=== PATIENT | male | born 1965 | race Caucasian/White ===

== ENCOUNTER 2020-08-20 10:32 | Emergency (ER) | payer OTHER, SELFPAY ==
--- NOTE | 2020-08-20 | CT_ITS ---
EXAMINATION: CT SOFT TISSUE NECK WITH CONTRAST CLINICAL INFORMATION: Deep space infection. Dental abscess. COMPARISON: None available. TECHNIQUE: Multidetector helical imaging was performed in the axial plane following the administration of 60 mL of Omnipaque 350 intravenous contrast. Multiple axial reformats and coronal/sagittal reconstructions were created the technologist workstation for review. This CT examination was performed using dose optimization techniques as appropriate, variously including the following: *Automated exposure control. *Adjustment of mA and/or kV according to patient size (this includes techniques or standardized protocols for targeted exams where dose is matched to indication/reason for exam; i.e. extremities or head). *Use of iterative reconstruction technique. DLP: 435 mGy-cm FINDINGS: There is hyperemia and mild expansion of the left submandibular and sublingual glands. Moderate fat stranding within the left submandibular space. No discrete collection demonstrated. No overt salivary ductal dilatation. No demonstrated obstructive sialolith or focal mass lesion. Normal appearance of the right-sided submandibular and sublingual glands. Normal appearance of the there appears to be a punctate nonobstructive stone in the superficial lobe of the left parotid gland. Otherwise, normal appearance of the parotid glands. Normal appearance of the right gland. No demonstrated focal lesion or abnormal enhancement within the intrinsic tissues of the tongue or floor of mouth. Minimal hyperemia and expansion of the left-sided palatine tonsils without demonstrated focal mass lesion or collection. Normal appearance of the right-sided palatine tonsils. Otherwise, normal mucosal contours of the pharynx and larynx without abnormal enhancement. No retropharyngeal collection. No additional significant cutaneous thickening or subcutaneous inflammation. No discrete drainable fluid collection within the deep tissues of the neck. Minimal fat stranding within the left parapharyngeal adipose tissue. The premaxillary, retromaxillary, pterygopalatine fossa, orbital apical, right-sided parapharyngeal, and prelaryngeal adipose tissue is maintained. Normal appearance of the parotid, submandibular, and thyroid glands. Hyperemic, mildly prominent left-sided level IIa lymph nodes measuring up to 1.1 cm. Otherwise, scattered subcentimeter lymph nodes bilaterally, none of which are pathologically enlarged or abnormally enhancing. Normal appearance of the hyoid bone, thyroid cartilage, or cartilaginous trachea. The airways remains widely patent. No radiopaque foreign bodies. The atlantooccipital and atlantoaxial articulations remain well aligned. Mild reversal the normal cervical lordosis centered on C6. Otherwise, there is Anatomic alignment of the vertebral bodies and posterior elements. No evidence of acute fracture or subluxation of the cervical spine. The vertebral body heights are maintained. Mild multilevel degenerative spondyloarthropathy of the cervical spine. The intervertebral disc spaces are largely maintained. Moderate facet joint arthropathy from C2-C5 with a degree of osseous encroachment on the C3-C4 neural foramina. No evidence of epidural collection. There is no prevertebral soft tissue swelling. Normal opacification of the cervical arterial and venous structures. The visualized portion of the skull base is without significant abnormalities. Mild mucosal thickening of the paranasal sinuses. The mastoid air cells and middle ear cavities remain well aerated. No demonstrated significant periapical odontogenic disease. No odontogenic abscess formation demonstrated. CT Upper Chest: The visualized lung apices and upper mediastinum are within normal limits. IMPRESSION: 1. Mildly expanded and hyperemic left submandibular and sublingual glands suggestive of nonspecific sialadenitis. No demonstrated obstructive stone or mass lesion. No demonstrated odontogenic abscess formation or significant periapical disease. 2. Mild hyperemia of the left palatine tonsils without demonstrated focal collection or mass lesion. Mildly prominent hyperemic left level IIa lymph nodes. No additional cervical lymphadenopathy.
[2020-08-20 10:39] VITALS: BP 112/77; BP 137/75; PULSE 69; RESP 20; TEMP 36.9; O2SAT 98; BMI 28.7
[2020-08-20 11:42] LABS: Glucose, Whole Blood 120 mg/dL (60-115)
[2020-08-20] MEDS: 0.9 % Sodium Chloride 1,000 ML 999 ML IVCONT (12:25)
[2020-08-20] MEDS: Ketorolac Tromethamine 30 MG/ML VIAL IVPUSH (12:25)
--- NOTE | 2020-08-20 12:29 | PC.NURSE ---
DR SCHULZ IN TO SEE PT. HE DRAINED ORAL ABSCESS IN THE BACK OF PTS LEFT LOWER MOUTH. ORDERS PROVIDED.
[2020-08-20 12:30] LABS: MANUAL DIFF FLAG NO
[2020-08-20 12:32] LABS: Basophils Percent Auto 0.2 % (0-2); Eosinophils Percent Auto 0.2 % (0-4); Hematocrit 46.4 % (42-52); Hemoglobin 15.9 g/dl (14.0-18.0); Imm Gran Abs Auto 0.04 X10*3/uL (0.00-0.03); Imm Gran Pct Auto 0.4 % (0.0-0.4); Lymphocytes Percent Auto 10.6 % (20-40); Mean Corpuscular HGB Conc 34.3 g/dl (31.0-36.0); Mean Corpuscular Volume 84.5 fL (80-98); Mean Platelet Volume 11.2 fL (9.4-12.4); Monocytes Absolute Auto 0.9 X10*3/uL (0.1-1.2); Monocytes Percent Auto 9.7 % (2-11); Neutrophils Absolute Auto 7.6 X10*3/uL (2.0-8.3); Neutrophils Percent Auto 78.9 % (45-73); Platelet Count 156 X10*3/uL (160-400); Red Blood Count 5.49 X10*6/uL (4.60-5.80); Red Cell Distribution Width 11.9 % (11.0-16.0); White Blood Count 9.6 X10*3/uL (4.8-10.8)
[2020-08-20] MEDS: Piperacillin Sodium/Tazobactam 3.375 GM in 0.9 % Sodium Chloride 50 ML IV (13:02)
[2020-08-20 13:04] VITALS: BP 111/70; PULSE 67; RESP 20
--- NOTE | 2020-08-20 13:19 | ED_ITS ---
HPI - Dental/Oral General Chief complaint: Dental/Oral Stated complaint: JAW PAIN,THROAT SWELLING FROM DENTIST Time Seen by Provider: 08/20/20 11:46 Source: patient Mode of arrival: ambulatory Limitations: language barrier History of Present Illness HPI Narrative: patient with dental caries sent by dentist for increasing pain in left 2nd molar with swelling spreading to the neck area for last 2 days did the x-ray and showed pulpitis patient had low-grade fever last night patient been having pain while swallowing so been drinking liquids MD Complaint: tooth pain Teeth map: 1. Related Data Home Medications Medication Instructions Recorded Confirmed Januvia 08/20/20 metformin 08/20/20 Allergies Allergy/AdvReac Type Severity Reaction Status Date / Time No Known Allergies Allergy Unverified 07/30/20 16:00 Review of Systems Review of Systems: REVIEW OF SYSTEMS: Pertinent positives and negatives are stated above in the history. GEN: no chills, fatigue HEENT: no nasal congestion, sore throat, ear pain NEURO: no headache, dizziness, focal weakness PULM: no cough, shortness of breath CV: no chest pain, palpitations, LE edema ABD: no abdominal pain, nausea, vomiting, diarrhea : no dysuria, urgency, frequency SKIN: no rash ROS otherwise negative x 10 PMFSH Past Medical History Medical History (Updated 08/20/20 @ 10:46 by Pedro Dalal) Asthma Diabetes mellitus, type 2 Social History Social History Smoked in Last 30 Days: No Use of substances other than those prescribed or required for medical reasons: Yes Substance Use Type: Marijuana Substance Use Frequency: Occasionally Last Used Substance: Unknown Any prior treatment program specific to substance use: No Advance Directives: No Advance Directives Information Provided: No Physical Exam Vital Signs and I&O and Narrative: Vital Signs and I&O: Vital Signs Temp 98.2 F 08/20/20 14:40 Pulse 67 08/20/20 14:40 Resp 16 08/20/20 14:40 BP 107/77 08/20/20 14:40 Pulse Ox 98 08/20/20 10:39 Intake & Output 08/19/20 08/20/20 08/20/20 18:59 06:59 18:59 Intake Total 1049 / 1049 Balance 1049 / 1049 Weight 71.214 kg Intake: Intake, IV Amoun t 1049 / 1049 Piperacillin S odium/Tazobactam 50 / 50 3.375 gm In 0. 9 % Sodium Chloride 50 ml @ 100 mls/hr IV ONCE ONE Rx#:[id number] 0.9 % Sodium C hloride 1,000 ml 999 / 999 @ 999 mls/hr I VCONT .Q1H1M NAHOMI Rx#:[id number] Body Mass Index 28.7 VITAL SIGNS: Reviewed. GENERAL: Well developed, well nourished, in no acute distress. HEAD: Normocephalic/atraumatic, Posterior oropharynx was without edema, erythema or exudate. EYES: PERRLA, EOMI intact without pain, no nystagmus/pallor/icterus noted EARS: Ext canals without abnormality, TMs non-bulging and non-erythematous NOSE: Nares patent bilateral OROPHARYNX: poor oral hygiene diffuse caries left lower 2nd molar to tender to touch with mucosal swelling, posterior pharynx clear and non-erythematous w ithout noted tonsillar enlargement/erythema/exudates NECK: Supple, soft tissue swelling left side of neck, anterior cervical lymphadenopathy present LUNGS: Normal breath sounds. No adventitious sounds or accessory muscle use CARDIOVASCULAR: Regular rate and rhythm without noted murmurs, no JVD or lower extremity edema. ABDOMEN: Soft, non-tender, non-distended with bowel sounds. No rigidity. No gu arding. No palpable masses or hernias noted MUSCULOSKELETAL: No tenderness, deformities, or effusions noted on gross inspection. EXTREMITIES: No cyanosis, clubbing or edema. SKIN: Inspection of the skin reveals no rashes, ulcerations, jaundice, pallor, or petechiae NEUROLOGIC: Alert and oriented x 3. Strength and sensation to light touch were grossly intact x 4. Course Course Course Narrative: patient was dental abscess CT scan negative for any fluid collection after aspiration with surrounding cellulitis already received Zosyn IV in the ER will discharge him home on clindamycin advised to follow as outpatient with dentist Procedures Abscess I/D Site: oral Technique: needle aspiration Amount of fluid expressed (mL): 0.5 MDM - Dental/Oral Lab Data Result diagrams: 08/20/20 12:18 08/20/20 12:18 Labs: Lab Results 08/20/20 08/20/20 08/20/20 Range/Units 11:38 12:18 12:18 WBC 9.6 (4.8-10.8) X10*3/uL RBC 5.49 (4.60-5.80) X10*6/uL Hgb 15.9 (14.0-18.0) g/dl Hct 46.4 (42-52) % MCV 84.5 (80-98) fL MCH 29.0 (27.0-33.0) pg MCHC 34.3 (31.0-36.0) g/dl RDW 11.9 (11.0-16.0) % Plt Count 156 L (160-400) X10*3/uL MPV 11.2 (9.4-12.4) fL Immature Gran % (Auto) 0.4 (0.0-0.4) % Neut % (Auto) 78.9 H (45-73) % Lymph % (Auto) 10.6 L (20-40) % [place] % (Auto) 9.7 (2-11) % Eos % (Auto) 0.2 (0-4) % Baso % (Auto) 0.2 (0-2) % Lymph # (Auto) 1.0 L (1.2-4.9) X10*3/uL [place] # (Auto) 0.9 (0.1-1.2) X10*3/uL Eos # (Auto) 0.0 (0.0-0.4) X10*3/uL Baso # (Auto) 0.0 (0.0-0.2) X10*3/uL Abs Immat Gran (auto) 0.04 H (0.00-0.03) X10*3/uL Absolute Neuts (auto) 7.6 (2.0-8.3) X10*3/uL Absolute Nucleated RBC 0.000 (0.0-0.012) X10*3/uL Nucleated RBC % (auto) 0.0 (0.0-0.2) /100WBC Sodium 138 (135-145) mmol/L Potassium 4.6 (3.3-5.1) mmol/l Chloride 101 (96-108) mmol/L Carbon Dioxide 28 (22-29) mmol/L Anion Gap 14 (12-20) BUN 9 (9-16) mg/dL Creatinine 0.93 (0.5-1.4) mg/dL Estim Creat Clear Calc 76.8 Estimated GFR > 60 POC Glucose 120 H (60-115) mg/dL Random Glucose 140 H (60-115) mg/dL Calcium 9.6 (8.4-10.2) mg/dL Discharge Plan Discharge Prescriptions: No Action Januvia RF: 0 metformin RF: 0
[2020-08-20 13:23] LABS: Anion Gap 14 (12-20); Blood Urea Nitrogen 9 mg/dL (9-16); Calcium 9.6 mg/dL (8.4-10.2); Carbon Dioxide 28 mmol/L (22-29); Chloride 101 mmol/L (96-108); Creatinine Clr Calc Pharmacy 76.8; Estimated Glomerular Filt Rate > 60; Glucose Random 140 mg/dL (60-115); Potassium 4.6 mmol/l (3.3-5.1); Sodium 138 mmol/L (135-145)
[2020-08-20] MEDS: iohexoL 350 MG/ML 100 ML INFUS..BTL 85 ML IV (13:46)
[2020-08-20 14:40] VITALS: BP 107/77; PULSE 67; RESP 16; TEMP 36.8
--- NOTE | 2020-08-20 14:49 | PC.NURSE ---
PT REQUESTED GIVEN DIET GINGERAL AND CESAR CRACKERS.
== END 2020-08-20 15:42 | disposition home or self-care (01) ==
PROVIDERS: Emergency Provider Internal Medicine; PCP Internal Medicine
DX: K04.7 Periapical abscess without sinus (principal); L03.211 Cellulitis of face; K02.9 Dental caries, unspecified
CPT/HCPCS: 36415; 41800; 70491; 80048; 82947; 85025; 96361; 96365; 96375; 99284; J1885

== ENCOUNTER 2020-10-27 08:40 | Outpatient (REF) | payer OTHER, SELFPAY ==
[2020-10-27 10:19] LABS: Estimated Average Glucose 163 mg/dL; Hemoglobin A1c % 7.3 %
[2020-10-27 10:27] LABS: Alanine Aminotransferase 17 U/L (0-40); Albumin Level 4.3 g/dL (3.5-5.0); Alkaline Phosphatase 71 U/L (39-117); Anion Gap 12 (12-20); Aspartate Amino Transferase 19 U/L (5-37); Bilirubin Total 0.6 mg/dL (0.0-1.0); Blood Urea Nitrogen 16 mg/dL (9-16); Carbon Dioxide 28 mmol/L (22-29); Chloride 103 mmol/L (96-108); Estimated Glomerular Filt Rate > 60; Glucose Random 220 mg/dL (60-115); Potassium 4.1 mmol/l (3.3-5.1); Sodium 139 mmol/L (135-145)
== END 2020-10-27 08:41 | disposition home or self-care (01) ==
LOC: HO.LAB 08:40
PROVIDERS: PCP Internal Medicine; Visit Provider Internal Medicine
DX: E11.9 Type 2 diabetes mellitus without complications (principal)
CPT/HCPCS: 80053; 83036

== ENCOUNTER 2021-01-21 08:32 | Outpatient (REF) | payer OTHER, SELFPAY ==
[2021-01-21 09:30] LABS: Estimated Average Glucose 163 mg/dL; Hemoglobin A1c % 7.3 %
[2021-01-21 09:50] LABS: Alanine Aminotransferase 17 U/L (0-40); Albumin Level 4.5 g/dL (3.5-5.0); Alkaline Phosphatase 68 U/L (39-117); Anion Gap 11 (12-20); Aspartate Amino Transferase 19 U/L (5-37); Blood Urea Nitrogen 16 mg/dL (9-16); Calcium 9.2 mg/dL (8.4-10.2); Carbon Dioxide 27 mmol/L (22-29); Chloride 104 mmol/L (96-108); Cholesterol 121 mg/dL; Estimated Glomerular Filt Rate > 60; Glucose Random 165 mg/dL (60-115); HDL Cholesterol 44 mg/dL; LDL Cholesterol Calculated 63 mg/dl; Potassium 4.1 mmol/L (3.3-5.1); Sodium 138 mmol/L (135-145); Total Protein 7.1 g/dL (6.5-8.0); Triglycerides 70 mg/dL
[2021-01-21 10:04] LABS: Creatinine Urine 153.34 mg/dL; Microalbum/Creatinine Ratio Ur 5.8 ug/mg cr
== END 2021-01-21 08:33 | disposition home or self-care (01) ==
LOC: HO.LAB 08:32
PROVIDERS: PCP Internal Medicine; Visit Provider Internal Medicine
DX: E11.649 Type 2 diabetes mellitus with hypoglycemia without coma (principal); E78.00 Pure hypercholesterolemia, unspecified; Z86.010 Personal history of colon polyps
CPT/HCPCS: 36415; 80053; 80061; 82043; 83036

== ENCOUNTER 2021-05-04 08:29 | Outpatient (REF) | payer OTHER, SELFPAY ==
[2021-05-04 09:56] LABS: Estimated Average Glucose 163 mg/dL; Hemoglobin A1c % 7.3 %
[2021-05-04 10:09] LABS: Alanine Aminotransferase 16 U/L (0-40); Albumin Level 4.3 g/dL (3.5-5.0); Alkaline Phosphatase 67 U/L (39-117); Anion Gap 11 (12-20); Aspartate Amino Transferase 20 U/L (5-37); Bilirubin Total 0.8 mg/dL (0.0-1.0); Blood Urea Nitrogen 16 mg/dL (9-16); Calcium 9.2 mg/dL (8.4-10.2); Carbon Dioxide 28 mmol/L (22-29); Chloride 104 mmol/L (96-108); Estimated Glomerular Filt Rate > 60; Glucose Random 140 mg/dL (60-115); Potassium 3.9 mmol/L (3.3-5.1); Sodium 139 mmol/L (135-145); Total Protein 6.8 g/dL (6.5-8.0)
== END 2021-05-04 08:30 | disposition home or self-care (01) ==
LOC: HO.LAB 08:29
PROVIDERS: PCP Internal Medicine; Visit Provider Internal Medicine
DX: E11.9 Type 2 diabetes mellitus without complications (principal); E78.00 Pure hypercholesterolemia, unspecified; I10 Essential (primary) hypertension
CPT/HCPCS: 36415; 80053; 83036

== ENCOUNTER 2021-08-02 08:26 | Outpatient (REF) | payer OTHER, SELFPAY ==
[2021-08-02 09:02] LABS: MANUAL DIFF FLAG NO
[2021-08-02 09:12] LABS: Basophils Percent Auto 0.5 % (0-2); Eosinophils Absolute Auto 0.1 X10*3/uL (0.0-0.4); Hematocrit 45.8 % (42-52); Hemoglobin 15.5 g/dl (14.0-18.0); Imm Gran Abs Auto 0.02 X10*3/uL (0.00-0.03); Imm Gran Pct Auto 0.5 % (0.0-0.4); Lymphocytes Percent Auto 21.7 % (20-40); Mean Corpuscular HGB Conc 33.8 g/dl (31.0-36.0); Mean Corpuscular Hemoglobin 28.7 pg (27.0-33.0); Mean Corpuscular Volume 84.8 fL (80-98); Mean Platelet Volume 11.7 fL (9.4-12.4); Monocytes Absolute Auto 0.5 X10*3/uL (0.1-1.2); Monocytes Percent Auto 10.5 % (2-11); Neutrophils Absolute Auto 2.8 X10*3/uL (2.0-8.3); Neutrophils Percent Auto 63.8 % (45-73); Platelet Count 159 X10*3/uL (160-400); Red Cell Distribution Width 12.3 % (11.0-16.0); White Blood Count 4.4 X10*3/uL (4.8-10.8)
[2021-08-02 09:54] LABS: Alanine Aminotransferase 21 U/L (0-40); Albumin Level 4.5 g/dL (3.5-5.0); Alkaline Phosphatase 79 U/L (39-117); Anion Gap 10 (12-20); Aspartate Amino Transferase 24 U/L (5-37); Blood Urea Nitrogen 13 mg/dL (9-16); Calcium 9.3 mg/dL (8.4-10.2); Carbon Dioxide 28 mmol/L (22-29); Chloride 104 mmol/L (96-108); Cholesterol 153 mg/dL; Estimated Glomerular Filt Rate > 60; Glucose Random 194 mg/dL (60-115); HDL Cholesterol 44 mg/dL; LDL Cholesterol Calculated 97 mg/dl; Sodium 138 mmol/L (135-145); Triglycerides 64 mg/dL
[2021-08-02 10:59] LABS: Estimated Average Glucose 163 mg/dL; Hemoglobin A1c % 7.3 %
[2021-08-02 11:01] LABS: Creatinine Urine 180.23 mg/dL; Microalbum/Creatinine Ratio Ur 5.5 ug/mg cr
== END 2021-08-02 08:27 | disposition home or self-care (01) ==
LOC: HO.LAB 08:26
PROVIDERS: PCP Internal Medicine; Visit Provider Internal Medicine
DX: E11.9 Type 2 diabetes mellitus without complications (principal); E78.00 Pure hypercholesterolemia, unspecified; I10 Essential (primary) hypertension
CPT/HCPCS: 36415; 80053; 80061; 82043; 83036; 85025

== ENCOUNTER 2021-11-09 08:35 | Outpatient (REF) | payer OTHER, SELFPAY ==
[2021-11-09 09:29] LABS: Estimated Average Glucose 154 mg/dL
[2021-11-09 09:53] LABS: Alanine Aminotransferase 26 U/L (0-40); Albumin Level 4.3 g/dL (3.5-5.0); Alkaline Phosphatase 67 U/L (39-117); Anion Gap 8 (12-20); Aspartate Amino Transferase 24 U/L (5-37); Bilirubin Total 0.9 mg/dL (0.0-1.0); Blood Urea Nitrogen 15 mg/dL (9-16); Calcium 9.7 mg/dL (8.4-10.2); Carbon Dioxide 29 mmol/L (22-29); Chloride 105 mmol/L (96-108); Cholesterol 135 mg/dL; Estimated Glomerular Filt Rate > 60; Glucose Random 194 mg/dL (60-115); HDL Cholesterol 45 mg/dL; LDL Cholesterol Calculated 76 mg/dl; Potassium 3.7 mmol/L (3.3-5.1); Sodium 138 mmol/L (135-145); Triglycerides 74 mg/dL
== END 2021-11-09 08:36 | disposition home or self-care (01) ==
LOC: HO.LAB 08:35
PROVIDERS: PCP Internal Medicine; Visit Provider Internal Medicine
DX: Z00.00 Encounter for general adult medical examination without abnormal findings (principal); Z13.220 Encounter for screening for lipoid disorders; Z13.1 Encounter for screening for diabetes mellitus
CPT/HCPCS: 36415; 80053; 80061; 83036

== ENCOUNTER 2022-01-28 10:27 | Day surgery (SDC) | payer OTHER, SELFPAY ==
--- NOTE | 2022-01-26 14:38 | HO.ANESPROP2 ---
Documented by User: Smitha Gibbs NP 01/26/22 14:39 HPI - Anesthesia Eval Consult details Narrative: 56yo M for Upper Endoscopy and Colonoscopy FOR[facility] Past Medical History Medical History Asthma De La Cruz esophagus Depression Diabetes mellitus, type 2 Elevated cholesterol GERD (gastroesophageal reflux disease) Hepatitis C Insomnia Surgical History Surgical History History of esophagogastroduodenoscopy (EGD) History of excision of pterygium History of liver biopsy History of surgery on arm Hx of colonoscopy Social History Social History Patient Tobacco Use Status: Former Tobacco user Quit Date: 15 years ago Use of substances other than those prescribed or required for medical reasons: Yes Substance Use Type: Marijuana Substance Use Type Other:: last night at 6PM Substance Use Frequency: Daily Are you DNR?: No Advance Directives: No Advance Directives Information Provided: Yes Recently lost weight without trying: No Meds Allergies Allergy/AdvReac Type Severity Reaction Status Date / Time No Known Allergies Allergy Unverified 01/28/22 11:09 Home Medications Medication Instructions Recorded Confirmed Last Taken Type aspirin 81 mg tablet,delayed 1 tab PO DAILY 01/17/22 01/28/22 01/27/22 History release glimepiride 1 mg tablet 0.5 tab PO DAILY 01/17/22 01/17/22 Unknown History losartan 25 mg tablet 1 tab PO DAILY 01/17/22 01/17/22 Unknown History metformin 1,000 mg tablet 1 tab PO BID 01/17/22 01/17/22 Unknown History mirtazapine 30 mg tablet 1 tab PO BEDTIME 01/17/22 01/17/22 Unknown History omeprazole 20 mg capsule,delayed 1 cap PO DAILY 01/17/22 01/17/22 Unknown History release paroxetine HCl 20 mg tablet 1 tab PO DAILY 01/17/22 01/17/22 Unknown History rosuvastatin 40 mg tablet 1 tab PO BEDTIME 01/17/22 01/17/22 Unknown History sertraline 50 mg tablet 50 mg PO DAILY 01/17/22 01/17/22 Unknown History sitagliptin 100 mg tablet (Januvia) 1 tab PO DAILY 01/17/22 01/17/22 Unknown History trazodone 50 mg tablet 50 mg PO BEDTIME 01/17/22 01/17/22 Unknown History Exam Exam Date and Time: January 26, 2022 1438 Pertinent Lab Results Pertinent Lab Results: Laboratory Tests 08/02/21 11/09/21 08:42 08:51 WBC 4.4 L Hgb 15.5 Hct 45.8 Plt Count 159 L Sodium 138 Potassium 3.7 Chloride 105 Carbon Dioxide 29 BUN 15 Creatinine 0.82 Assessment and Plan Assessment Anesthesia Assessment: Chart Reviewed Documented by User: Macarena Velez MD 01/28/22 12:51 PMFSH Past Medical History Medical History Asthma De [place] Cruz esophagus Depression Diabetes mellitus, type 2 Elevated cholesterol GERD (gastroesophageal reflux disease) Hepatitis C Insomnia Surgical History Surgical History History of esophagogastroduodenoscopy (EGD) History of excision of pterygium History of liver biopsy History of surgery on arm Hx of colonoscopy History of Problems with Anesthesia: No Social History Social History Patient Tobacco Use Status: Former Tobacco user Quit Date: 15 years ago Use of substances other than those prescribed or required for medical reasons: Yes Substance Use Type: Marijuana Substance Use Type Other:: last night at 6PM Substance Use Frequency: Daily Are you DNR?: No Advance Directives: No Advance Directives Information Provided: Yes Recently lost weight without trying: No Meds Allergies Allergy/AdvReac Type Severity Reaction Status Date / Time No Known Allergies Allergy Unverified 01/28/22 11:09 Home Medications Medication Instructions Recorded Confirmed Last Taken Type aspirin 81 mg tablet,delayed 1 tab PO DAILY 01/17/22 01/28/22 01/27/22 History release glimepiride 1 mg tablet 0.5 tab PO DAILY 01/17/22 01/17/22 Unknown History losartan 25 mg tablet 1 tab PO DAILY 01/17/22 01/17/22 Unknown History metformin 1,000 mg tablet 1 tab PO BID 01/17/22 01/17/22 Unknown History mirtazapine 30 mg tablet 1 tab PO BEDTIME 01/17/22 01/17/22 Unknown History omeprazole 20 mg capsule,delayed 1 cap PO DAILY 01/17/22 01/17/22 Unknown History release paroxetine HCl 20 mg tablet 1 tab PO DAILY 01/17/22 01/17/22 Unknown History rosuvastatin 40 mg tablet 1 tab PO BEDTIME 01/17/22 01/17/22 Unknown History sertraline 50 mg tablet 50 mg PO DAILY 01/17/22 01/17/22 Unknown History sitagliptin 100 mg tablet (Januvia) 1 tab PO DAILY 01/17/22 01/17/22 Unknown History trazodone 50 mg tablet 50 mg PO BEDTIME 01/17/22 01/17/22 Unknown History Exam Airway Mallampati Class: II TM Dist: >3cm Neck ROM: Full Loose/Missing/Broken Teeth: No Heart: RRR Lungs: CTA Assessment and Plan Assessment Anesthesia Assessment: Anesthesia Plan Discussed Final Anesthetic Review History of Problems with Anesthesia: No NPO: Yes ASA Class: II Final Preanesthetic Review: Meds/Allgs Chart Reviewed, Consent Obtained/Reviewed and Anes Risks/Benef Reviewed Patient Risk: Low Procedure Risk: Intermediate Anesthetic Plan Anesthetic Plan: MAC: Disposition: Standard PACU
[2022-01-28 10:50] VITALS: BMI 27.4
[2022-01-28 10:51] VITALS: BP 112/73; PULSE 75; RESP 18; TEMP 36.7; O2SAT 96
[2022-01-28 10:52] LABS: Glucose, Whole Blood 182 mg/dL (60-115)
[2022-01-28] MEDS: Lactated Ringers 1,000 ML 100 ML IVCONT (11:21)
--- NOTE | 2022-01-28 12:00 | MHC.SHP ---
Pre-Procedural Eval Section A Date of Service: 01/28/22 Section B Chief Complaint: choe's esophagus,screeing Details of Present Illness: see h&p no changes Relevant Family History (Specify if Yes): No Relevant Social History: None Present Medications: see Short Stay Collaborative assessment Medical History: No relevant PMH History of Previous Operations: No relevant previous surgery Allergies: Allergies Allergy/AdvReac Type Severity Reaction Status Date / Time No Known Allergies Allergy Unverified 01/28/22 11:09 Review of Systems Sugical H&P ROS: Negative: Constitution, Cardiovascular, Respiratory, Neurological, Psychiatric, Hem-Onc, Allergic/Immunologic, Gastrointestinal, Genitourinary, Musculoskeletal, Integumentary, Endocrine and Eyes/Ears/Nose/Throat Exam Surgical H&P Exam: Normal: HEENT, Normal: Heart, Normal: Lungs, Normal: Extremities, Normal: Abdomen, Normal: Skin and Normal: Neurological Plan Diagnosis/Plan: Unchanged I have reviewed the history and physical and performed a pertinent physical examination on my patient. No changes have occurred unless specified.
[2022-01-28 13:10] VITALS: BP 95/62; PULSE 70; RESP 18; TEMP 36.3; O2SAT 98
--- NOTE | 2022-01-28 13:18 | PM.OP ---
Brief Operative Note Date of Service: 01/28/22 Pre-op diagnosis: barretts,screening Post-op diagnosis: same Surgeon: Demetris Cazares Anesthesia: MAC Was an Publishing Specialist used for this Procedure?: No Estimated blood loss (mL): 2 Pathology: other (see req) Condition: stable Disposition: PACU
[2022-01-28 13:25] VITALS: BP 102/64; PULSE 62; RESP 18; O2SAT 96
[2022-01-28 13:40] VITALS: BP 113/70; PULSE 67; RESP 18; TEMP 36.3; O2SAT 96
--- NOTE | 2022-01-28 13:57 | OP_ITS ---
SURGEON: Demetris Cazares MD INDICATIONS: 1. De La Cruz esophagus. 2. Colon cancer screening and prior history of adenomatous colon polyps. PREOPERATIVE DIAGNOSIS: POSTOPERATIVE DIAGNOSIS: PROCEDURE PERFORMED: 1. Upper endoscopy with biopsy. 2. Colonoscopy to the terminal ileum. ESTIMATED BLOOD LOSS: COMPLICATIONS: ANESTHESIA: ASSISTANTS: SPECIMENS: MEDICATIONS: Monitored anesthesia care. DESCRIPTION OF PROCEDURE: History and physical were performed. The risks and benefits of the procedure were explained to the patient. Informed consent was obtained. The patient was placed in left lateral decubitus position. A digital rectal exam was performed and prior to the colonoscopy the Olympus video gastroscope was introduced into the esophagus, stomach, and duodenum. Examination was performed and the scope was removed. He was repositioned for colonoscopy. The Olympus pediatric video colonoscope was introduced into the rectum and advanced to the cecum without difficulty. The cecum was identified by transillumination, palpation, and identification of the ileocecal valve. Examination was performed. Scope was removed. He tolerated both procedures well and was sent to recovery area in stable condition. FINDINGS: UPPER ENDOSCOPY: Esophagus: The esophagus showed De La Cruz esophagus extending from the EG junction up to about 26 cm. There were no raised lesions or ulcerated areas. Biopsies were obtained beginning at the EG junction and extending in all 4 quadrants up to 26 cm every 2 cm. There was a small hiatal hernia. Stomach: The stomach showed no evidence of masses or ulcers. There was mild erythema consistent with gastritis. Biopsies were obtained from the antrum. Duodenum: The bulb and second portion were normal. COLONOSCOPY: The terminal ileum was normal. Visualized colonic mucosa was normal. The quality of the prep was good. No polyps were identified. Retroflexed examination was normal. IMPRESSION: 1. De La Cruz esophagus. 2. Normal colonoscopy. RECOMMENDATIONS: 1. Follow up biopsy results. 2. Repeat colonoscopy is recommended in 10 years for average risk individuals. MD DIMITRIOS Dudley/LINDAL / [id number]
== END 2022-01-28 15:00 | disposition home or self-care (01) ==
PROVIDERS: PCP Internal Medicine; Visit Provider Internal Medicine Gastroenterology
PROC: (CPT 45378; principal; 2022-01-28 12:00)
DX: Z12.11 Encounter for screening for malignant neoplasm of colon (principal); Z86.010 Personal history of colon polyps; K22.70 Barrett's esophagus without dysplasia; K29.70 Gastritis, unspecified, without bleeding; K44.9 Diaphragmatic hernia without obstruction or gangrene; R39.15 Urgency of urination; E11.9 Type 2 diabetes mellitus without complications; B19.20 Unspecified viral hepatitis C without hepatic coma; E78.00 Pure hypercholesterolemia, unspecified; F32.9 Major depressive disorder, single episode, unspecified; Z79.82 Long term (current) use of aspirin; Z79.84 Long term (current) use of oral hypoglycemic drugs; Z98.890 Other specified postprocedural states; Z79.899 Other long term (current) drug therapy; Z87.891 Personal history of nicotine dependence
CPT/HCPCS: 45378; 43239; 82947; 88305; 88342

== ENCOUNTER 2022-02-15 08:24 | Outpatient (REF) | payer OTHER, SELFPAY ==
[2022-02-15 10:22] LABS: Estimated Average Glucose 160 mg/dL; Hemoglobin A1c % 7.2 %
== END 2022-02-15 08:25 | disposition home or self-care (01) ==
LOC: HO.LAB 08:24
PROVIDERS: PCP Internal Medicine; Visit Provider Internal Medicine
DX: E11.9 Type 2 diabetes mellitus without complications (principal); E78.00 Pure hypercholesterolemia, unspecified; F32.5 Major depressive disorder, single episode, in full remission; R21 Rash and other nonspecific skin eruption; R39.15 Urgency of urination
CPT/HCPCS: 36415; 80053; 83036; 84443

== ENCOUNTER 2022-02-16 09:29 | Outpatient (REF) | payer OTHER, SELFPAY ==
[2022-02-16 10:51] LABS: Alanine Aminotransferase 24 U/L (0-40); Albumin Level 4.7 g/dL (3.5-5.0); Alkaline Phosphatase 64 U/L (39-117); Anion Gap 10 (12-20); Aspartate Amino Transferase 19 U/L (5-37); Bilirubin Total 1.1 mg/dL (0.0-1.0); Blood Urea Nitrogen 16 mg/dL (9-16); Calcium 9.9 mg/dL (8.4-10.2); Carbon Dioxide 28 mmol/L (22-29); Chloride 104 mmol/L (96-108); Estimated Glomerular Filt Rate > 60; Glucose Random 195 mg/dL (60-115); Potassium 4.2 mmol/L (3.3-5.1); Sodium 138 mmol/L (135-145); Total Protein 7.6 g/dL (6.5-8.0)
[2022-02-16 11:11] LABS: Thyroid Stimulating Hormone 0.67 uIU/mL (0.32-4.0)
== END 2022-02-16 09:30 | disposition home or self-care (01) ==
LOC: HO.LAB 09:29
PROVIDERS: Visit Provider Internal Medicine
DX: Z13.89 Encounter for screening for other disorder (principal)
CPT/HCPCS: 36415; 80053; 84443

== ENCOUNTER → 2022-02-21 14:25 | Outpatient (BNVA) | payer OTHER, SELFPAY | PROVIDERS: PCP Internal Medicine | DX: R35.0 Frequency of micturition (principal) | CPT/HCPCS: 51798; 99202 ==

== ENCOUNTER 2022-05-17 09:46 | Outpatient (REF) | payer OTHER, SELFPAY ==
[2022-05-17 10:58] LABS: Estimated Average Glucose 157 mg/dL; Hemoglobin A1c % 7.1 %
[2022-05-17 11:21] LABS: Alanine Aminotransferase 25 U/L (0-40); Albumin Level 4.4 g/dL (3.5-5.0); Alkaline Phosphatase 63 U/L (39-117); Anion Gap 11 (12-20); Aspartate Amino Transferase 23 U/L (5-37); Bilirubin Total 0.6 mg/dL (0.0-1.0); Blood Urea Nitrogen 20 mg/dL (9-16); Calcium 9.1 mg/dL (8.4-10.2); Carbon Dioxide 27 mmol/L (22-29); Chloride 103 mmol/L (96-108); Estimated Glomerular Filt Rate > 60; Glucose Random 188 mg/dL (60-115); Potassium 3.8 mmol/L (3.3-5.1); Sodium 137 mmol/L (135-145); Total Protein 6.9 g/dL (6.5-8.0)
== END 2022-05-17 09:47 | disposition home or self-care (01) ==
LOC: HO.LAB 09:46
PROVIDERS: PCP Internal Medicine; Visit Provider Internal Medicine
DX: E11.9 Type 2 diabetes mellitus without complications (principal); F32.5 Major depressive disorder, single episode, in full remission; I10 Essential (primary) hypertension; R39.15 Urgency of urination
CPT/HCPCS: 36415; 80053; 83036

== ENCOUNTER 2022-06-19 13:45 | Emergency (ER) | payer OTHER, SELFPAY ==
[2022-06-19 14:10] VITALS: BMI 27.4
[2022-06-19] MEDS: Tetracaine HCl/PF 0.5% Oph Sol 4 ML DROPS 1 DROP EYE-LEFT (14:40)
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
== END 2022-06-19 14:53 | disposition home or self-care (01) ==
PROVIDERS: Emergency Provider Emergency Medicine; PCP Internal Medicine
DX: H11.32 Conjunctival hemorrhage, left eye (principal); S00.83XA Contusion of other part of head, initial encounter; Y04.2XXA Assault by strike against or bumped into by another person, initial encounter; M54.2 Cervicalgia; Y93.89 Activity, other specified; Y92.039 Unspecified place in apartment as the place of occurrence of the external cause; Y99.8 Other external cause status
CPT/HCPCS: 99282; 99283

== ENCOUNTER 2022-06-23 09:28 | Emergency (ER) | payer OTHER, SELFPAY ==
--- NOTE | ~2022-06-23 | XR_ITS ---
EXAMINATION: XR CHEST CLINICAL INFORMATION: Rib fractures question COMPARISON: 10/20/2008 TECHNIQUE: 2 views of the chest were obtained. FINDINGS: There is no evidence for pneumothorax. Cannot rule out a small trace effusion effusion on the right Lung chapman are grossly clear. The cardiac silhouette is within normal limits. No displaced fracture is identified here. XR/XR chest 2V IMPRESSION: No displaced fracture is seen on this two-view chest film. There is no pneumothorax. Possible trace right-sided effusion.
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
[2022-06-23 10:22] VITALS: BP 129/75; PULSE 82; RESP 18; TEMP 36.6; O2SAT 98; BMI 26.1
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
[2022-06-23] MEDS: Fluorescein Sodium STRIP 1 STRIP EYE-RIGHT (12:53)
[2022-06-23] MEDS: Fluorescein Sodium STRIP 1 STRIP EYE-LEFT (12:53)
[2022-06-23] MEDS: Tetracaine HCl/PF 0.5% Oph Sol 4 ML DROPS 1 DROP EYE-BOTH (12:53)
[2022-06-23 13:07] LABS: Glucose, Whole Blood 161 mg/dL (60-115)
[2022-06-23] MEDS: Ibuprofen 800 MG TABLET PO (14:12)
[2022-06-23] MEDS: Acetaminophen 325 MG TABLET 975 MG PO (14:13)
[2022-06-23] MEDS: predniSONE 20 MG TABLET 60 MG PO (14:13)
== END 2022-06-23 14:51 | disposition home or self-care (01) ==
PROVIDERS: Emergency Provider Emergency Medicine; PCP Internal Medicine
DX: H11.31 Conjunctival hemorrhage, right eye (principal); S02.2XXA Fracture of nasal bones, initial encounter for closed fracture; Y04.2XXA Assault by strike against or bumped into by another person, initial encounter; H57.12 Ocular pain, left eye; M54.2 Cervicalgia; R07.81 Pleurodynia; E11.9 Type 2 diabetes mellitus without complications; E78.5 Hyperlipidemia, unspecified; Z79.82 Long term (current) use of aspirin; Z79.899 Other long term (current) drug therapy; Z79.84 Long term (current) use of oral hypoglycemic drugs; Z79.02 Long term (current) use of antithrombotics/antiplatelets; Y93.9 Activity, unspecified; Y92.9 Unspecified place or not applicable; Y99.9 Unspecified external cause status
CPT/HCPCS: 70450; 70486; 71046; 72125; 82947; 99284

== ENCOUNTER 2022-08-23 08:42 | Outpatient (REF) | payer OTHER, SELFPAY ==
[2022-08-23 08:53] LABS: MANUAL DIFF FLAG NO
[2022-08-23 09:14] LABS: Basophils Percent Auto 0.6 % (0-2); Eosinophils Absolute Auto 0.2 X10*3/uL (0.0-0.4); Eosinophils Percent Auto 2.8 % (0-4); Hematocrit 43.1 % (42.0-52.0); Hemoglobin 15.2 g/dl (14.0-18.0); Imm Gran Abs Auto 0.02 X10*3/uL (0.00-0.03); Imm Gran Pct Auto 0.4 % (0.0-0.4); Lymphocytes Percent Auto 18.2 % (20-40); Mean Corpuscular HGB Conc 35.3 g/dl (31.0-36.0); Mean Corpuscular Hemoglobin 29.3 pg (27.0-33.0); Mean Corpuscular Volume 83.2 fL (80.0-98.0); Mean Platelet Volume 11.1 fL (9.4-12.4); Monocytes Absolute Auto 0.5 X10*3/uL (0.1-1.2); Monocytes Percent Auto 9.2 % (2-11); Neutrophils Absolute Auto 3.7 x10*3/uL (2.0-8.3); Neutrophils Percent Auto 68.8 % (45-73); Platelet Count 154 X10*3/uL (160-400); Red Blood Count 5.18 X10*6/uL (4.60-5.80); Red Cell Distribution Width 11.9 % (11.0-16.0); White Blood Count 5.3 X10*3/uL (4.8-10.8)
[2022-08-23 09:37] LABS: Estimated Average Glucose 169 mg/dL; Hemoglobin A1c % 7.5 %
[2022-08-23 09:47] LABS: Alanine Aminotransferase 18 U/L (0-40); Albumin Level 4.7 g/dL (3.5-5.0); Alkaline Phosphatase 73 U/L (39-117); Anion Gap 14 (12-20); Aspartate Amino Transferase 19 U/L (5-37); Bilirubin Total 0.9 mg/dL (0.0-1.0); Blood Urea Nitrogen 18 mg/dL (9-16); Calcium 9.9 mg/dL (8.4-10.2); Carbon Dioxide 25 mmol/L (22-29); Chloride 103 mmol/L (96-108); Cholesterol 126 mg/dL; Estimated Glomerular Filt Rate > 60; Glucose Random 190 mg/dL (60-115); HDL Cholesterol 51 mg/dL; LDL Cholesterol Calculated 62 mg/dl; Potassium 4.1 mmol/L (3.3-5.1); Sodium 138 mmol/L (135-145); Total Protein 7.4 g/dL (6.5-8.0); Triglycerides 66 mg/dL
[2022-08-23 10:08] LABS: Prostate Specific Antigen 0.69 ng/mL (<0.05-4.0)
[2022-08-23 10:30] LABS: Creatinine Urine 45.85 mg/dL; Microalbumin Urine < 5.0 mg/L
[2022-08-23 10:54] LABS: Vitamin B12 598 pg/mL (200-900)
== END 2022-08-23 08:43 | disposition home or self-care (01) ==
LOC: HO.LAB 08:42
PROVIDERS: PCP Internal Medicine; Visit Provider Internal Medicine
DX: Z12.5 Encounter for screening for malignant neoplasm of prostate (principal); E11.9 Type 2 diabetes mellitus without complications; E78.00 Pure hypercholesterolemia, unspecified; I10 Essential (primary) hypertension; R39.15 Urgency of urination
CPT/HCPCS: 36415; 80053; 80061; 82043; 82607; 83036; 84153; 85025

== ENCOUNTER → 2022-09-07 09:30 | Outpatient (BNVA) | payer OTHER, SELFPAY | PROVIDERS: PCP Internal Medicine; Visit Provider Urology | DX: N40.1 Benign prostatic hyperplasia with lower urinary tract symptoms (principal); R35.0 Frequency of micturition | CPT/HCPCS: 51798; 99212 ==

== ENCOUNTER 2022-09-13 12:16 | Outpatient (REF) | payer OTHER, SELFPAY ==
--- NOTE | ~2022-09-13 | US_ITS ---
EXAMINATION: US RETROPERITONEAL LIMITED (RENAL ONLY) CLINICAL INFORMATION: Frequency of micturition. COMPARISON: CT abdomen and pelvis with contrast dated 04/15/2009. TECHNIQUE: Real-time imaging of the kidneys. FINDINGS: RIGHT KIDNEY: 10.5 x 6.8 x 6.2 cm (SAG x AP x TRV). The kidney is normal in size, contour, and echogenicity. Renal cortical thickness is normal. No renal calculi or hydronephrosis. There is anechoic cyst in the lower pole lateral cortex measuring 0.6 x 0.5 x 0.6 cm. LEFT KIDNEY: 11.7 x 6.0 x 4.7 cm (SAG x AP x TRV). The kidney is normal in size, contour, and echogenicity. Renal cortical thickness is normal. No focal parenchymal lesions or hydronephrosis. There is a nonobstructive echogenic stone midpole measuring 0.2 x 0.1 x 0.2 cm. US/US renal BI IMPRESSION: Nonobstructive echogenic calculi midpole left kidney Small cyst lower pole right kidney.
== END 2022-09-13 12:17 | disposition home or self-care (01) ==
LOC: HO.US 12:16
PROVIDERS: Visit Provider Pediatrics Pediatric Gastroenterology
DX: R35.0 Frequency of micturition (principal)
CPT/HCPCS: 76775

== ENCOUNTER → 2022-10-17 09:24 | Outpatient (BNVA) | payer OTHER, SELFPAY | PROVIDERS: PCP Internal Medicine; Visit Provider Urology | DX: N40.1 Benign prostatic hyperplasia with lower urinary tract symptoms (principal); R35.0 Frequency of micturition | CPT/HCPCS: 51798; 99212 ==

== ENCOUNTER 2022-11-21 08:32 | Outpatient (REF) | payer OTHER, SELFPAY ==
[2022-11-21 08:42] LABS: MANUAL DIFF FLAG NO
[2022-11-21 09:24] LABS: Basophils Percent Auto 0.4 % (0-2); Eosinophils Absolute Auto 0.2 X10*3/uL (0.0-0.4); Eosinophils Percent Auto 4.2 % (0-4); Hematocrit 46.3 % (42.0-52.0); Imm Gran Abs Auto 0.01 X10*3/uL (0.00-0.03); Imm Gran Pct Auto 0.2 % (0.0-0.4); Lymphocytes Absolute Auto 1.4 X10*3/uL (1.2-4.9); Lymphocytes Percent Auto 29.7 % (20-40); Mean Corpuscular HGB Conc 34.6 g/dl (31.0-36.0); Mean Corpuscular Hemoglobin 29.3 pg (27.0-33.0); Mean Corpuscular Volume 84.8 fL (80.0-98.0); Mean Platelet Volume 11.8 fL (9.4-12.4); Monocytes Absolute Auto 0.5 X10*3/uL (0.1-1.2); Monocytes Percent Auto 11.2 % (2-11); Neutrophils Absolute Auto 2.5 x10*3/uL (2.0-8.3); Neutrophils Percent Auto 54.3 % (45-73); Platelet Count 146 X10*3/uL (160-400); Red Blood Count 5.46 X10*6/uL (4.60-5.80); Red Cell Distribution Width 12.2 % (11.0-16.0); White Blood Count 4.6 X10*3/uL (4.8-10.8)
[2022-11-21 09:37] LABS: Estimated Average Glucose 171 mg/dL; Hemoglobin A1c % 7.6 %
[2022-11-21 09:49] LABS: Alanine Aminotransferase 13 U/L (0-40); Albumin Level 4.6 g/dL (3.5-5.0); Alkaline Phosphatase 77 U/L (39-117); Anion Gap 12 (12-20); Aspartate Amino Transferase 18 U/L (5-37); Bilirubin Total 0.6 mg/dL (0.0-1.0); Blood Urea Nitrogen 19 mg/dL (9-16); Calcium 9.8 mg/dL (8.4-10.2); Carbon Dioxide 28 mmol/L (22-29); Chloride 100 mmol/L (96-108); Estimated Glomerular Filt Rate > 60; Glucose Random 267 mg/dL (60-115); Potassium 4.8 mmol/L (3.3-5.1); Sodium 135 mmol/L (135-145); Total Protein 7.3 g/dL (6.5-8.0)
== END 2022-11-21 08:33 | disposition home or self-care (01) ==
LOC: HO.LAB 08:32
PROVIDERS: PCP Internal Medicine; Visit Provider Internal Medicine
DX: D69.6 Thrombocytopenia, unspecified (principal); E11.65 Type 2 diabetes mellitus with hyperglycemia; E78.00 Pure hypercholesterolemia, unspecified; I10 Essential (primary) hypertension
CPT/HCPCS: 36415; 80053; 83036; 85025

== ENCOUNTER 2022-12-16 09:38 | Outpatient (REF) | payer OTHER, SELFPAY ==
--- NOTE | ~2022-12-16 | US_ITS ---
EXAMINATION: US ABDOMEN COMPLETE CLINICAL INFORMATION: Thrombocytopenia. COMPARISON: Ultrasound retroperitoneal limited (renal only) 09/13/2022. TECHNIQUE: Real-time imaging of the abdominal viscera. FINDINGS: PANCREAS: Limited. The visualized pancreatic head and body are normal in appearance. The remainder of the pancreas is obscured from visualization by the overlying bowel gas. ABDOMINAL AORTA: The proximal, mid, and distal segments are normal in caliber. INFERIOR VENA CAVA: Visualized portions are normal. LIVER: Normal. The liver is normal in size. The liver contour is normal. Parenchymal echogenicity is normal. No focal hepatic lesion. There is no intrahepatic biliary duct dilatation seen. GALLBLADDER: Normal. The gallbladder is physiologically distended without evidence of stones, sludge, polyps, wall thickening or pericholecystic fluid. COMMON BILE DUCT: Normal in caliber measuring 0.6 cm in diameter. RIGHT KIDNEY: At the lower pole laterally, a 6 mm anechoic, simple cyst is seen. No hydronephrosis or renal calculi. The kidney measures 10.2 cm in maximum dimension. LEFT KIDNEY: At the interpolar aspect, a 2 mm nonobstructing calculus is seen, with twinkle artifact. No hydronephrosis or focal parenchymal lesions. The kidney measures 10.9 cm in maximum dimension. SPLEEN: Normal. The spleen measures 10.3 cm in maximum dimension. FREE FLUID: None. US/US abdomen complete IMPRESSION: 1. A 2 mm nonobstructing left renal calculus is seen. No right renal calculus is seen. No hydronephrosis is noted bilaterally. 2. At the lower pole of the right kidney laterally, a 6 mm benign, simple cyst is seen, for which no imaging follow-up is recommended. 3. Technically limited ultrasound examination of the pancreatic tail.
== END 2022-12-16 09:39 | disposition home or self-care (01) ==
LOC: HO.US 09:38
PROVIDERS: PCP Internal Medicine; Visit Provider Internal Medicine
DX: D69.6 Thrombocytopenia, unspecified (principal)
CPT/HCPCS: 76700

== ENCOUNTER 2023-02-06 09:23 | Outpatient (REF) | payer OTHER, SELFPAY ==
[2023-02-06 09:36] LABS: MANUAL DIFF FLAG NO
[2023-02-06 09:47] LABS: Basophils Percent Auto 0.4 % (0-2); Eosinophils Absolute Auto 0.3 X10*3/uL (0.0-0.4); Hematocrit 45.3 % (42.0-52.0); Hemoglobin 15.6 g/dl (14.0-18.0); Imm Gran Abs Auto 0.01 X10*3/uL (0.00-0.03); Imm Gran Pct Auto 0.2 % (0.0-0.4); Lymphocytes Absolute Auto 1.4 X10*3/uL (1.2-4.9); Lymphocytes Percent Auto 24.7 % (20-40); Mean Corpuscular HGB Conc 34.4 g/dl (31.0-36.0); Mean Corpuscular Hemoglobin 28.9 pg (27.0-33.0); Mean Corpuscular Volume 83.9 fL (80.0-98.0); Mean Platelet Volume 11.2 fL (9.4-12.4); Monocytes Absolute Auto 0.6 X10*3/uL (0.1-1.2); Neutrophils Absolute Auto 3.2 x10*3/uL (2.0-8.3); Neutrophils Percent Auto 57.7 % (45-73); Platelet Count 160 X10*3/uL (160-400); Red Cell Distribution Width 12.4 % (11.0-16.0); White Blood Count 5.5 X10*3/uL (4.8-10.8)
[2023-02-06 10:09] LABS: Estimated Average Glucose 157 mg/dL; Hemoglobin A1c % 7.1 %
[2023-02-06 10:21] LABS: Alanine Aminotransferase 19 U/L (0-40); Albumin Level 4.4 g/dL (3.5-5.0); Alkaline Phosphatase 71 U/L (39-117); Anion Gap 10 (12-20); Aspartate Amino Transferase 18 U/L (5-37); Bilirubin Total 1.1 mg/dL (0.0-1.0); Blood Urea Nitrogen 20 mg/dL (9-16); Calcium 9.6 mg/dL (8.4-10.2); Carbon Dioxide 29 mmol/L (22-29); Chloride 102 mmol/L (96-108); Estimated Glomerular Filt Rate > 60; Glucose Random 184 mg/dL (60-115); Potassium 4.2 mmol/L (3.3-5.1); Sodium 137 mmol/L (135-145); Total Protein 6.7 g/dL (6.5-8.0)
== END 2023-02-06 09:24 | disposition home or self-care (01) ==
LOC: HO.LAB 09:23
PROVIDERS: PCP Internal Medicine; Visit Provider Internal Medicine
DX: E11.65 Type 2 diabetes mellitus with hyperglycemia (principal); B37.41 Candidal cystitis and urethritis; D69.6 Thrombocytopenia, unspecified; I10 Essential (primary) hypertension
CPT/HCPCS: 36415; 80053; 83036; 85025

== ENCOUNTER 2023-02-14 08:41 | Outpatient (REF) | payer OTHER, SELFPAY ==
[2023-02-18 17:37] LABS: PSA, Ultra Sensitive 0.79 ng/mL
== END 2023-02-14 08:42 | disposition home or self-care (01) ==
LOC: HO.LAB 08:41
PROVIDERS: Visit Provider Urology
DX: N40.1 Benign prostatic hyperplasia with lower urinary tract symptoms (principal); R35.0 Frequency of micturition
CPT/HCPCS: 36415; 84153

== ENCOUNTER → 2023-02-16 10:27 | Outpatient (BNVA) | payer OTHER, SELFPAY | PROVIDERS: PCP Internal Medicine; Visit Provider Urology | DX: N40.0 Benign prostatic hyperplasia without lower urinary tract symptoms (principal); N32.81 Overactive bladder; Z12.5 Encounter for screening for malignant neoplasm of prostate | CPT/HCPCS: 51798; 99212 ==

== ENCOUNTER 2023-05-18 08:25 | Outpatient (REF) | payer OTHER, SELFPAY ==
[2023-05-18 09:58] LABS: Prostate Specific Antigen Scr 0.72 ng/mL (<0.05-4.0); Vitamin B12 701 pg/mL (200-900)
== END 2023-05-18 08:26 | disposition home or self-care (01) ==
LOC: HO.LAB 08:25
PROVIDERS: PCP Internal Medicine; Visit Provider Internal Medicine
DX: Z12.5 Encounter for screening for malignant neoplasm of prostate (principal); E11.9 Type 2 diabetes mellitus without complications; E78.00 Pure hypercholesterolemia, unspecified; I10 Essential (primary) hypertension
CPT/HCPCS: 36415; 80053; 80061; 82043; 82607; 83036; 84153; 85025

== ENCOUNTER 2023-06-22 08:29 | Outpatient (AMB) | payer OTHER, SELFPAY ==
--- NOTE | 2023-06-22 07:17 | A.OFFVIS_ITS ---
Intake Intake Visit Reasons: 4m follow up Intake Note: Patient presents today for a 4 months follow-up on with PSA results: Meds- Tolterodine Allergies to Antibiotic- No Known Allergies Blood Thinner- Aspirin PSA Results- 72 ng/mL, 05/18/2023 PVR- 0 ml Software Project Lead Required: Yes Software Project Lead Language: Middle School Professional Name: MICHELLE Her/JUAN MALIN Information Interpreted: non-clinical & clinical Accompanied by: Self / Same As Patient Allergies No Known Allergies Allergy (Verified 06/22/23 08:39) Medication List - Last Reconciled 06/22/23 by Dave Velasco MD aspirin 1 tab PO DAILY blood sugar diagnostic (FreeStyle Lite Strips) As directed empagliflozin (Jardiance) 25 mg PO QAM glimepiride 0.5 tabs PO DAILY losartan 1 tab PO DAILY metformin 1 tab PO BID mirtazapine 1 tab PO BEDTIME naproxen 500 mg PO BID PRN 10 days omeprazole 1 cap PO DAILY paroxetine HCl 1 tab PO DAILY rosuvastatin 1 tab PO BEDTIME sertraline 50 mg PO DAILY sitagliptin phosphate (Januvia) 1 tab PO DAILY tolterodine ER 4 mg PO DAILY trazodone 50 mg PO BEDTIME HPI HPI Comments History of Present Illness Details 06/22/2023-- Connor is a 57-year-old male who presents today to the office for a follow up on PSA results. He is followed for OAB symptoms. ------LV--10/17/2022--Cystoscopy not done today Connor ia here for FU for lower urinary tract symptoms of urgency and urge incontinence.? He states that he does not wear a pad but just will change his clothes p.r.n. He denies dysuria.? He denies seeing blood in the urine.? Comorbidity diabetes no PSA in chart. On last visit he was started on detrol. OV scheduled for office cysto- In discussion I reviewed renal sono, possible small left kidney stone, no hydronephrosis, The patient states urinary symptoms improved on medication.? Plan - will hold on cysto for today. -------02/16/2023-- The patient is a [place]ankan speaking male. 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 The patient took tolterodine 4 mg QD for 30 days and states there was no refill. States tolterodine has helped decrease urinary urgency. Evaluation today: Blood: negative, leukocytes: negative. Bladder scan PVR: 50 mL. AUA symptom score: 18. PSA blood work?02/14/2023--results pending. Plan: Overactive bladder symptoms. Tolterodine 4 mg QD for 90 days was reordered. PSA screening. The nurse will call the patient if the PSA blood work results are abnormal. Follow-up after 4 months.? ? Today's visit--06/22/2023-- Connor is a 57-year-old male who presents today to the office for a follow up on PSA results. he was last seen by me on 02/16/2023. Comorbodities: diabetes. He has been prescribed with tolterodine 4 mg. He denies irritative voiding symptoms, or gross hematuria, tolerating detrol. Evaluation today UA: leukocyte:; negative; blood: negative; positive glucose in urine 3+ Plan: Continue taking tolteridonel 4 mg daily. Continue PSA screening. Follow up in one year. [facility] Medical History Asthma De La Cruz esophagus Depression Diabetes mellitus, type 2 Elevated cholesterol GERD (gastroesophageal reflux disease) Hepatitis C Insomnia Urinary frequency Surgical History History of esophagogastroduodenoscopy (EGD) History of excision of pterygium History of liver biopsy History of surgery on arm Hx of colonoscopy Social History Patient Tobacco Use Status: Former Tobacco user Quit Date: 15 years ago Substance Use Type: Marijuana Review of Systems Const All systems reviewed & are unremarkable except as noted in HPI and below and Unobtainable due to mental status Reports no additional complaints Eyes Reports no additional complaints ENT Denies neck pain Card Denies leg edema Resp Denies cough GI Denies constipation Musc Reports no additional complaints and Denies neck pain Skin/Breast Denies rash and Denies unusual bruising Neuro Reports no additional complaints Psych Reports no additional complaints Endo Reports no additional complaints Martin/Lymph Reports no additional complaints Aller/Immun Reports no additional complaints Office Procedures Post Void Residual Post Residual Void Post Void Residual (PVR): 0 [id number]-[id number] Void Residual by ultrasound Results AMB Urinalysis, Automated UA Leukoctes 0 Bhargav/uL Last Edit by Evaristo Anderson [facility] on 06/22/23 08:59 UA Nitrite Negative Last Edit by Evaristo Anderson [facility] on 06/22/23 08:59 UA Urobilinogen 0.2 mg/dL Last Edit by Evaristo Anderson [facility] on 06/22/23 08:5 9 UA Protein 0 mg/dL Last Edit by Evaristo Anderson [facility] on 06/22/23 08:59 UA pH 5.5 Last Edit by Evaristo Anderson [facility] on 06/22/23 08:59 UA Blood 0 Hilton/uL Last Edit by Evaristo Anderson [facility] on 06/22/23 08:59 UA Specific Gillett 1.015 Last Edit by Evaristo Anderson [facility] on 06/22/23 08: 59 UA Ketone Negative Last Edit by Evaristo Anderson [facility] on 06/22/23 08:59 UA Bilirubin 0 mg/dL Last Edit by Evaristo Anderson [facility] on 06/22/23 08:59 UA Glucose 0 mg/dL Last Edit by Evaristo Anderson [facility] on 06/22/23 08:59 Results Reviewed Results Reviewed: Laboratory Last Values Urine pH (Auto) 5.5 06/22/23 08:39 Specific Gillett (Auto) 1.015 06/22/23 08:39 Urine Protein (Auto) 0 mg/dL 06/22/23 08:39 Glucose (UA)(Auto) 0 mg/dL 06/22/23 08:39 Urine Ketones (Auto) Negative 06/22/23 08:39 Urine Blood (Auto) 0 Hilton/uL 06/22/23 08:39 Urine Nitrite (Auto) Negative 06/22/23 08:39 Urine Bilirubin (Auto) 0 mg/dL 06/22/23 08:39 Urine Urobilinogen (Auto) 0.2 mg/dL 06/22/23 08:39 Leukocyte Esterase (Auto) 0 Bhargav/uL 06/22/23 08:39 Assessment & Plan Assessment & Plan (1) BPH (benign prostatic hyperplasia): Code(s): N40.0 - Benign prostatic hyperplasia without lower urinary tract symptoms (2) OAB (overactive bladder): Code(s): N32.81 - Overactive bladder (3) Screening PSA (prostate specific antigen): Code(s): Z12.5 - Encounter for screening for malignant neoplasm of prostate Plan Continue taking tolteridone 4 mg daily. Continue PSA screening. Follow up in one year. Orders: Orders PSA,Total (Free>4and<10) 11 Months Z12.5 - Encounter for screening for malignant neoplasm of prostate AMB Urinalysis Automated 06/22/23 Z13.9 - Encounter for screening, unspecified AMB Post Void Residual by ultrasound 06/22/23 N39.8 - Other specified disorders of urinary system Medications: Refilled tolterodine ER 4 mg PO DAILY 90 caps 3RF Patient Instructions: The patient had an opportunity to ask questions regarding treatment plan. All questions were answered. Imaging, Laboratory studies and physical exam results were discussed and reviewed in detail. No major barriers to understanding were identified. The patient expressed understanding and agreement with the above treatment plan.? ? ? The patient is aware they should contact our office by phone for worsening of their current condition or the appearance of new symptoms. Compliance is encouraged with any medications and followup testing that is ordered.? ? ? It is a privilege to be allowed the opportunity to participate in the urologic care of your patient. If you have any questions or concerns regarding treatment for the above conditions please do not hesitate to contact me. The office telephone contact is [phone].? ? ? This note is constructed in part using voice recognition software. While every effort has been made to ensure accuracy water pollution control technician errors may have been included.? ? ? Yours sincerely,? ? ? Dave Velasco MD? ? Coding Level of Care Code Est Pt Level 3 (01187) Diagnoses BPH (benign prostatic hyperplasia) N40.0 OAB (overactive bladder) N32.81 Screening PSA (prostate specific antigen) Z12.5 CPT Codes Post Residual Void - PVR CPT Code: 25481-[id number] Void Residual by ultrasound ([id number])
== END 2023-06-22 09:10 | disposition home or self-care (01) ==
PROVIDERS: Visit Provider Urology
DX: N40.0 Benign prostatic hyperplasia without lower urinary tract symptoms (principal); N32.81 Overactive bladder; Z12.5 Encounter for screening for malignant neoplasm of prostate
CPT/HCPCS: 99213

== ENCOUNTER → 2023-06-22 08:29 | Outpatient (BNVA) | payer OTHER, SELFPAY | PROVIDERS: Visit Provider Urology | DX: N40.0 Benign prostatic hyperplasia without lower urinary tract symptoms (principal); N32.81 Overactive bladder; Z79.899 Other long term (current) drug therapy | CPT/HCPCS: 51798; 99212 ==

== ENCOUNTER 2023-08-17 08:27 | Outpatient (REF) | payer OTHER, SELFPAY | END 2023-08-17 08:28 | disposition home or self-care (01) | LOC: HO.LAB 08:27 | PROVIDERS: PCP Internal Medicine; Visit Provider Internal Medicine | DX: Z00.00 Encounter for general adult medical examination without abnormal findings (principal); D69.6 Thrombocytopenia, unspecified; E11.9 Type 2 diabetes mellitus without complications; E78.00 Pure hypercholesterolemia, unspecified; M67.431 Ganglion, right wrist | CPT/HCPCS: 36415; 80053; 83036; 85025 ==

== ENCOUNTER 2023-08-17 08:54 | Outpatient (REF) | payer OTHER, SELFPAY | END 2023-08-17 08:55 | disposition home or self-care (01) | LOC: HO.HOSX 08:54 | PROVIDERS: Visit Provider Physician Assistant | DX: M79.641 Pain in right hand (principal); M67.431 Ganglion, right wrist | CPT/HCPCS: 73130 ==

== ENCOUNTER 2023-08-17 09:18 | Outpatient (AMB) | payer OTHER, SELFPAY ==
--- NOTE | 2023-08-17 11:04 | MHC.OFFVIS ---
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 Patient reports lump appeared about a month ago. Complaints of shocking pain that radiates up his arm, states feels like a cramp in her upper arm. States at times he will drop items. Denies injury, numbness or tingling. No other tx. 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 He reports he has a lump present on his hand for about a month. He currently c/o a ?shocking? pain in his hand which radiates up to his arm. He also states he experiences feelings like cramping in his upper arm and frequently drop items. He denies any recent injury, numbness, or tingling and has not had any treatment in the past. [facility] Medical History Asthma De La Cruz esophagus Depression Diabetes mellitus, type 2 Elevated cholesterol GERD (gastroesophageal reflux disease) Hepatitis C Insomnia Urinary frequency Surgical History History of excision of pterygium History of surgery on arm History of esophagogastroduodenoscopy (EGD) Hx of colonoscopy History of liver biopsy Social History (Updated 08/17/23 @ 11:15 by MICHELLE Hall) Patient Tobacco Use Status: Former Tobacco user Quit Date: 15 years ago Substance Use Type: Marijuana Current occupational status: unemployed and disabled Current occupation: right hand dominant Review of Systems Const All systems reviewed & are unremarkable except as noted in HPI and below Physical Exam Vital Signs: BMI result Body Mass Index 28.3 Const General: cooperative, healthy appearing, comfortable, no acute distress, well developed and alert Orientation/consciousness: patient oriented x3 HEENT Head: Yes normal to inspection, Yes normocephalic and Yes atraumatic Eyes General: appearance normal, both eyes and all related structures Resp Effort & Inspection: normal respiratory effort and able to speak in complete sentences Cardio Rate: regular rate Peripheral pulses: Peripheral pulses 2+ throughout GI Palpation (GI): Soft to palpation Skin Lesions: no lesions Rashes: no rashes Neuro General: patient oriented x3 Extrem Other: Right hand: Skin intact. There is a marble sized mass along the volar aspect of the wrist in line with the base of the thumb along the radial aspect of the wrist. The mass is firm and mobile. No tenderness to palpation. NVI. Results Reviewed Results Reviewed: Xrays were obtained in the office today and personally reviewed by me of the right and show mild cmc oa Assessment & Plan Assessment & Plan (1) Ganglion cyst of volar aspect of right wrist: Code(s): M67.431 - Ganglion, right wrist Plan An MRI of the right wrist was obtained to further evaluate the vasculature surrounding the cyst. I did provide him with a Velcro wrist splint to use with any type of lifting activities and he will see us back once the imaging study is performed to discuss further treatment recommendations. Orders: Orders XR hand RT min 3V Today M79.641 - Pain in right hand MR wrist RT wo/w con Today M67.431 - Ganglion, right wrist Patient Instructions: Scribed for Sherri Constantino PA-C, by Geo Turner nuclear medical technologist, on 08/17/2023 at 11:00 AM EST. Sherri Fishman PA-C, have personally reviewed and agree with the information entered by the scribe. Coding Level of Care Code New Pt Level 3 (10117) Diagnoses Ganglion cyst of volar aspect of right wrist M67.431
[2023-08-17 11:15] VITALS: BMI 28.3
== END 2023-08-17 11:51 | disposition home or self-care (01) ==
PROVIDERS: PCP Internal Medicine; Visit Provider Physician Assistant
DX: M67.431 Ganglion, right wrist (principal)
CPT/HCPCS: 99203

== ENCOUNTER 2023-11-15 08:27 | Outpatient (REF) | payer OTHER, SELFPAY ==
[2023-11-15 09:35] LABS: Alanine Aminotransferase 17 U/L (0-40); Albumin Level 4.8 g/dL (3.5-5.0); Alkaline Phosphatase 78 U/L (39-117); Anion Gap 10 (12-20); Aspartate Amino Transferase 20 U/L (5-37); Blood Urea Nitrogen 18 mg/dL (9-16); Calcium 9.7 mg/dL (8.4-10.2); Carbon Dioxide 27 mmol/L (22-29); Chloride 106 mmol/L (96-108); Cholesterol 175 mg/dL (<200); Estimated Glomerular Filt Rate > 60; Glucose Random 144 mg/dL (60-115); HDL Cholesterol 55 mg/dL (>40); LDL Cholesterol Calculated 107 mg/dL (<100); Potassium 3.9 mmol/L (3.3-5.1); Sodium 139 mmol/L (135-145); Total Protein 7.6 g/dL (6.5-8.0); Triglycerides 68 mg/dL (<150)
[2023-11-15 09:50] LABS: Estimated Average Glucose 148 mg/dL; Hemoglobin A1c % 6.8 % (<6.0)
== END 2023-11-15 08:28 | disposition home or self-care (01) ==
LOC: HO.LAB 08:27
PROVIDERS: PCP Internal Medicine; Visit Provider Internal Medicine
DX: E11.9 Type 2 diabetes mellitus without complications (principal); I10 Essential (primary) hypertension; E78.00 Pure hypercholesterolemia, unspecified; N48.1 Balanitis; Z68.27 Body mass index [BMI] 27.0-27.9, adult
CPT/HCPCS: 36415; 80053; 80061; 83036

== ENCOUNTER 2024-01-24 14:35 | Outpatient (REF) | payer OTHER, SELFPAY ==
--- NOTE | ~2024-01-24 | MR_ITS ---
EXAMINATION: MR WRIST WITHOUT AND WITH CONTRAST, RIGHT CLINICAL INFORMATION: Right wrist pain, lump/mass. Ganglion. COMPARISON: Right hand radiographs dated 08/17/2023. TECHNIQUE: MRI of the wrist was performed before and after the intravenous administration of 7.5 mL Gadavist on a high-field scanner. FINDINGS: TRIANGULAR FIBROCARTILAGE: Attenuation through the central radial aspect without a measurable full-thickness tear. INTRINSIC LIGAMENTS: Intact. TENDONS/MEDIAN NERVE: The visualized flexor and extensor tendons are intact. No transverse tendon tear or tendon retraction. Intact median nerve. ARTICULAR CARTILAGE/BONE: Degenerative cystic change within the lunate and scaphoid adjacent to the scapholunate articulation as well as within the proximal aspect of the capitate and hamate. Articular cartilage loss with subchondral cystic change and marginal osteophytes at the triscaphe joint. No acute fracture or dislocation. No concerning lytic or blastic osseous lesion. No significant postcontrast marrow enhancement. JOINT FLUID/SOFT TISSUES: Along the volar aspect of the radial styloid just radial to the flexor carpi radialis tendon and in the region of the overlying skin marker there is a lobulated cyst with minimal peripheral enhancement measuring 0.4 x 0.8 x 0.8 cm, consistent with a synovial recess versus ganglion cyst. Trace distal radioulnar joint effusion. No additional soft tissue mass or fluid collection. No enhancing soft tissue lesion. MR/MR wrist RT wo/w con IMPRESSION: 1. Synovial recess versus ganglion cyst measuring up to 0.8 cm along the volar aspect of the radial styloid in the region of the overlying skin marker. 2. 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 No acute osseous injury. 3. Attenuation through the central radial aspect of the triangular fibrocartilage complex without a measurable full-thickness tear. Trace distal radioulnar joint effusion.
[2024-01-24] MEDS: gadobutroL 7.5 ML VIAL IVPUSH (15:32)
== END 2024-01-24 14:36 | disposition home or self-care (01) ==
LOC: HO.MRI 14:35
PROVIDERS: PCP Internal Medicine; Visit Provider Physician Assistant
DX: M67.431 Ganglion, right wrist (principal)
CPT/HCPCS: 73223; A9585

== ENCOUNTER 2024-02-09 08:31 | Outpatient (REF) | payer OTHER, SELFPAY ==
[2024-02-09 10:02] LABS: Alanine Aminotransferase 13 U/L (0-40); Albumin Level 4.3 g/dL (3.5-5.0); Alkaline Phosphatase 76 U/L (39-117); Anion Gap 13 (12-20); Aspartate Amino Transferase 17 U/L (5-37); Bilirubin Total 0.9 mg/dL (0.0-1.0); Blood Urea Nitrogen 15 mg/dL (9-16); Calcium 9.6 mg/dL (8.4-10.2); Carbon Dioxide 26 mmol/L (22-29); Chloride 103 mmol/L (96-108); Cholesterol 220 mg/dL (<200); Estimated Glomerular Filt Rate > 60; Glucose Random 179 mg/dL (60-115); HDL Cholesterol 51 mg/dL (>40); LDL Cholesterol Calculated 152 mg/dL (<100); Potassium 3.8 mmol/L (3.3-5.1); Sodium 138 mmol/L (135-145); Total Protein 7.1 g/dL (6.5-8.0); Triglycerides 87 mg/dL (<150)
[2024-02-09 11:38] LABS: Estimated Average Glucose 160 mg/dL; Hemoglobin A1c % 7.2 % (<6.0)
== END 2024-02-09 08:32 | disposition home or self-care (01) ==
LOC: HO.LAB 08:31
PROVIDERS: PCP Internal Medicine; Visit Provider Internal Medicine
DX: E11.9 Type 2 diabetes mellitus without complications (principal); E78.00 Pure hypercholesterolemia, unspecified; I10 Essential (primary) hypertension
CPT/HCPCS: 36415; 80053; 80061; 83036

== ENCOUNTER 2024-02-12 15:19 | Outpatient (AMB) | payer OTHER, SELFPAY ==
--- NOTE | 2024-02-12 15:19 | MHC.OFFVIS ---
Intake Intake Visit Reasons: tele-Ganglion Cyst Rt Hand MRI Review Intake Note: Pt presents to the office today as a telehealth visit for a ganglion cyst rt hand MRI review. Therapeutic Assistant Required: Yes Therapeutic Assistant Name: Alisha ID [id number] Information Interpreted: clinical only Allergies No Known Allergies Allergy (Verified 02/12/24 15:19) HPI tele-Ganglion Cyst Rt Hand MRI Review HPI Details 58 yo male presents for telehealth right hand MRI review. He states he has intermittent pain and no limitations. [facility] Medical History Urinary frequency GERD (gastroesophageal reflux disease) Depression Elevated cholesterol De La Cruz esophagus Insomnia Hepatitis C Diabetes mellitus, type 2 Asthma Surgical History History of excision of pterygium History of surgery on arm History of esophagogastroduodenoscopy (EGD) Hx of colonoscopy History of liver biopsy Social History Patient Tobacco Use Status: Former Tobacco user Quit Date: 15 years ago Substance Use Type: Marijuana Current occupational status: unemployed and disabled Current occupation: right hand dominant Review of Systems Const All systems reviewed & are unremarkable except as noted in HPI and below Physical Exam Resp Effort & Inspection: normal respiratory effort and able to speak in complete sentences Results Reviewed Results Reviewed: MR wrist RT wo/w con IMPRESSION: 1. Synovial recess versus ganglion cyst measuring up to 0.8 cm along the volar aspect of the radial styloid in the region of the overlying skin marker. 2. 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 No acute osseous injury. 3. Attenuation through the central radial aspect of the triangular fibrocartilage complex without a measurable full-thickness tear. Trace distal radioulnar joint effusion. Assessment & Plan Assessment & Plan (1) Ganglion cyst of volar aspect of right wrist: Code(s): M67.431 - Ganglion, right wrist Plan: We discussed options which include surgical vs conservative. Since he does not have limitations in daily activities he is going to continue with conservative treatment. Telehealth Telehealth Location of provider rendering services: practice address Location of patient: address on file Telehealth method: voice only Patient verbally consented to treatment: Yes Patient verbally consented to billing insurance company: Yes Patient informed of any privacy concerns related to visit: Yes Minutes spent on Phone/Video with Pt.: 10 Coding Level of Care Code Tele Est Pt Level 3 (69405) Diagnoses Ganglion cyst of volar aspect of right wrist M67.431
== END 2024-02-12 15:32 | disposition home or self-care (01) ==
LOC: HO.HOS 15:19
PROVIDERS: PCP Internal Medicine; Visit Provider Physician Assistant
DX: M67.431 Ganglion, right wrist (principal)
CPT/HCPCS: 99213

== ENCOUNTER → 2024-02-12 15:19 | Outpatient (BNVA) | payer OTHER, SELFPAY | PROVIDERS: PCP Internal Medicine; Visit Provider Physician Assistant ==

== ENCOUNTER 2024-05-10 08:27 | Outpatient (REF) | payer OTHER, SELFPAY ==
[2024-05-10 09:23] LABS: Estimated Average Glucose 166 mg/dL; Hemoglobin A1c % 7.4 % (<6.0)
[2024-05-10 10:19] LABS: Alanine Aminotransferase 20 U/L (0-40); Albumin Level 4.2 g/dL (3.5-5.0); Alkaline Phosphatase 63 U/L (39-117); Anion Gap 12 (12-20); Aspartate Amino Transferase 20 U/L (5-37); Bilirubin Total 0.8 mg/dL (0.0-1.0); Blood Urea Nitrogen 14 mg/dL (9-16); Calcium 8.9 mg/dL (8.4-10.2); Carbon Dioxide 25 mmol/L (22-29); Chloride 104 mmol/L (96-108); Cholesterol 92 mg/dL (<200); Estimated Glomerular Filt Rate > 60; Glucose Random 205 mg/dL (60-115); HDL Cholesterol 46 mg/dL (>40); LDL Cholesterol Calculated 36 mg/dL (<100); Potassium 3.4 mmol/L (3.3-5.1); Sodium 138 mmol/L (135-145); Total Protein 6.7 g/dL (6.5-8.0); Triglycerides 52 mg/dL (<150)
[2024-05-10 10:29] LABS: Creatinine Urine 77.87 mg/dL; Microalbum/Creatinine Ratio Ur 10.2 ug/mg cr (<30)
[2024-05-10 10:31] LABS: Prostate Specific Antigen Scr 0.68 ng/mL (<0.05-4.0)
== END 2024-05-10 08:28 | disposition home or self-care (01) ==
LOC: HO.LAB 08:27
PROVIDERS: PCP Internal Medicine; Visit Provider Internal Medicine
DX: E11.9 Type 2 diabetes mellitus without complications (principal); E78.00 Pure hypercholesterolemia, unspecified; I10 Essential (primary) hypertension; N40.0 Benign prostatic hyperplasia without lower urinary tract symptoms
CPT/HCPCS: 36415; 80053; 80061; 82043; 82570; 83036; 84153

== ENCOUNTER 2024-08-14 08:28 | Outpatient (REF) | payer OTHER, SELFPAY ==
[2024-08-14 09:30] LABS: Estimated Average Glucose 157 mg/dL; Hemoglobin A1C 197.6711 umol/L; Hemoglobin A1c % 7.1 % (<6.0); Total Hemoglobin (HGBA1C) 3629.5607 umol/L
[2024-08-14 09:36] LABS: Alanine Aminotransferase 22 U/L (0-40); Albumin Level 4.3 g/dL (3.5-5.0); Alkaline Phosphatase 76 U/L (39-117); Anion Gap 14 (12-20); Aspartate Amino Transferase 23 U/L (5-37); Blood Urea Nitrogen 14 mg/dL (9-16); Calcium 9.6 mg/dL (8.4-10.2); Carbon Dioxide 23 mmol/L (22-29); Chloride 105 mmol/L (96-108); Estimated Glomerular Filt Rate > 60; Glucose Random 163 mg/dL (60-115); Potassium 4.3 mmol/L (3.3-5.1); Sodium 138 mmol/L (135-145); Total Protein 7.1 g/dL (6.5-8.0)
== END 2024-08-14 08:29 | disposition home or self-care (01) ==
LOC: HO.LAB 08:28
PROVIDERS: PCP Internal Medicine; Visit Provider Internal Medicine
DX: Z00.00 Encounter for general adult medical examination without abnormal findings (principal); E11.65 Type 2 diabetes mellitus with hyperglycemia; E78.00 Pure hypercholesterolemia, unspecified; I10 Essential (primary) hypertension
CPT/HCPCS: 36415; 80053; 83036

== ENCOUNTER 2024-11-20 08:28 | Outpatient (REF) | payer OTHER, SELFPAY ==
[2024-11-20 10:24] LABS: Estimated Average Glucose 154 mg/dL; Hemoglobin A1C 198.0458 umol/L; Total Hemoglobin (HGBA1C) 3762.7689 umol/L
[2024-11-20 10:38] LABS: Alanine Aminotransferase 18 U/L (0-40); Albumin Level 4.3 g/dL (3.5-5.0); Alkaline Phosphatase 80 U/L (39-117); Anion Gap 10 (12-20); Aspartate Amino Transferase 23 U/L (5-37); Bilirubin Total 0.4 mg/dL (0.0-1.0); Blood Urea Nitrogen 17 mg/dL (9-16); Calcium 9.4 mg/dL (8.4-10.2); Carbon Dioxide 28 mmol/L (22-29); Chloride 106 mmol/L (96-108); Estimated Glomerular Filt Rate > 60; Glucose Random 171 mg/dL (60-115); Sodium 140 mmol/L (135-145); Total Protein 6.8 g/dL (6.5-8.0)
== END 2024-11-20 08:29 | disposition home or self-care (01) ==
LOC: HO.LAB 08:28
PROVIDERS: PCP Internal Medicine; Visit Provider Internal Medicine
DX: E11.9 Type 2 diabetes mellitus without complications (principal); I10 Essential (primary) hypertension; Z68.26 Body mass index [BMI] 26.0-26.9, adult
CPT/HCPCS: 36415; 80053; 83036

== ENCOUNTER 2024-12-20 08:28 | Day surgery (SDC) | payer OTHER, SELFPAY ==
[2024-12-18 13:36] VITALS: BMI 25.2
--- NOTE | 2024-12-19 09:05 | P.CONAN_ITS ---
Documented by User: Smitha Gibbs NP 12/19/24 09:06 HPI - Anesthesia Eval Consult details Narrative: 59yo M for Upper Endoscopy Anesthesia Pre-Procedure Meds Is the patient on any of the following meds?: GLP1/DPP4 PMFSH Active Problems Active Problems: All Active Problems Ganglion cyst of volar aspect of right wrist (Acute) Screening PSA (prostate specific antigen) (Acute) OAB (overactive bladder) (Acute) BPH (benign prostatic hyperplasia) (Acute) BPH loc w urin obs/LUTS (Acute) Urinary frequency (Acute) Past Medical History Medical History Urinary frequency GERD (gastroesophageal reflux disease) Depression Elevated cholesterol De La Cruz esophagus Insomnia Hepatitis C Diabetes mellitus, type 2 Asthma Surgical History Surgical History History of excision of pterygium History of surgery on arm History of esophagogastroduodenoscopy (EGD) Hx of colonoscopy History of liver biopsy History of Problems with Anesthesia: No Social History Social History Patient Tobacco Use Status: Former Tobacco user Tobacco use type: Cigarette Substance Use Type: Marijuana Current occupational status: unemployed and disabled Current occupation: right hand dominant Meds Allergies Allergy/AdvReac Type Severity Reaction Status Date / Time No Known Allergies Allergy Verified 12/20/24 09:26 Home Medications ?Medication ?Instructions ?Recorded ?Confirmed ?Last Taken ?Type glimepiride 1 mg tablet 0.5 tab PO DAILY 01/17/22 12/20/24 12/18/24 History metformin 1,000 mg tablet 1 tab PO BID 01/17/22 12/20/24 12/18/24 History omeprazole 20 mg capsule,delayed 1 cap PO DAILY 01/17/22 12/20/24 Unknown History release rosuvastatin 40 mg tablet 1 tab PO BEDTIME 01/17/22 12/20/24 Unknown History sertraline 50 mg tablet 50 mg PO DAILY 01/17/22 12/20/24 Unknown History sitagliptin phosphate 100 mg 1 tab PO DAILY 01/17/22 12/20/24 12/18/24 History tablet (Januvia) trazodone 50 mg tablet 50 mg PO BEDTIME 01/17/22 12/20/24 Unknown History blood sugar diagnostic (FreeStyle #10 ea 02/21/22 06/22/23 Unknown History Lite Strips) Exam Height,Weight and Vital Signs: Height 5 ft 4 in Weight 66.678 kg Assessment and Plan Assessment Anesthesia Assessment: Chart Reviewed Final Anesthetic Review History of Problems with Anesthesia: No Documented by User: Yadi Samaniego MD 12/20/24 10:58 HPI - Anesthesia Eval Consult details Narrative: 59yo M for Upper Endoscopy. Addendum: Patient taking hospital van home. No one at home to meet patient. Had a discussion with patient regarding possibke side effects of anesthesia and requirement for discharge to the care of a responsible adult. Patient states did the same last time. Patient was told of possible cancellation of procedure if no one at home. Patient managed to find a friend who I spoke to and who will meet him off the van. Will proceed. Dr Cazares and director life sales aware. Anesthesia Pre-Procedure Meds Is the patient on any of the following meds?: GLP1/DPP4 (Last dose of Januvia 12/18/24) If yes to any meds - educate patient: Pt education - increased risk of aspiration and/or euvolemic DKA PMFSH Active Problems Active Problems: All Active Problems Ganglion cyst of volar aspect of right wrist (Acute) Screening PSA (prostate specific antigen) (Acute) OAB (overactive bladder) (Acute) BPH (benign prostatic hyperplasia) (Acute) BPH loc w urin obs/LUTS (Acute) Urinary frequency (Acute) Marijuana use. Last yesterday Past Medical History Medical History Urinary frequency GERD (gastroesophageal reflux disease) Depression Elevated cholesterol De La Cruz esophagus Insomnia Hepatitis C Diabetes mellitus, type 2 Asthma Family History Family history of problems with anesthesia: No Surgical History Surgical History History of excision of pterygium History of surgery on arm History of esophagogastroduodenoscopy (EGD) Hx of colonoscopy History of liver biopsy History of Problems with Anesthesia: No Social History Social History Patient Tobacco Use Status: Former Tobacco user Tobacco use type: Cigarette Substance Use Type: Marijuana Current occupational status: unemployed and disabled Current occupation: right hand dominant Meds Allergies Allergy/AdvReac Type Severity Reaction Status Date / Time No Known Allergies Allergy Verified 12/20/24 09:26 Home Medications ?Medication ?Instructions ?Recorded ?Confirmed ?Last Taken ?Type glimepiride 1 mg tablet 0.5 tab PO DAILY 01/17/22 12/20/24 12/18/24 History metformin 1,000 mg tablet 1 tab PO BID 01/17/22 12/20/24 12/18/24 History omeprazole 20 mg capsule,delayed 1 cap PO DAILY 01/17/22 12/20/24 Unknown History release rosuvastatin 40 mg tablet 1 tab PO BEDTIME 01/17/22 12/20/24 Unknown History sertraline 50 mg tablet 50 mg PO DAILY 01/17/22 12/20/24 Unknown History sitagliptin phosphate 100 mg 1 tab PO DAILY 01/17/22 12/20/24 12/18/24 History tablet (Januvia) trazodone 50 mg tablet 50 mg PO BEDTIME 01/17/22 12/20/24 Unknown History blood sugar diagnostic (FreeStyle #10 ea 02/21/22 06/22/23 Unknown History Lite Strips) Exam Height,Weight and Vital Signs: Height 5 ft 4 in Weight 66.678 kg Vital Signs Temp Pulse Resp BP Pulse Ox O2 Del Method 12/20/24 09:15 98.0 F 74 16 99/64 100 Room Air Pertinent Lab Results Pertinent Lab Results: Lab Results 12/20/24 Range/Units 09:12 POC Glucose 162 H (60-115) mg/dL Airway Mallampati Class: II TM Dist: >3cm Loose/Missing/Broken Teeth: Yes (Broken teeth top front. Missing several teeth back. Denies loose teeth) Heart: RRR Lungs: CTAB Assessment and Plan Assessment Anesthesia Assessment: Anesthesia Plan Discussed and Chart Reviewed Final Anesthetic Review Family History of Problems with Anesthesia: No History of Problems with Anesthesia: No NPO: Yes ASA Class: III Final Preanesthetic Review: No Changes in Pt Med Stat, Meds/Allgs Chart Reviewed, Consent Obtained/Reviewed and Anes Risks/Benef Reviewed Patient Risk: Intermediate Procedure Risk: Low Assessment/Block/Sedation in SS: Assess/Block/Sedation-SS Anesthetic Plan Anesthetic Plan: TIVA Disposition: Standard PACU
--- OUTSIDE RECORDS SUMMARY | 2024-12-20 08:52 | XMS_ITS | Clinical Summary ---
Author Organization [employer] Address [address] [place] [address] [address] [place] [address] Care Team Providers Care Gasser Machine Operator Name Role Phone Unavailable Primary Care Provider Unavailabl e Allergies No known active allergies Medications No known medications Active Problems Problem Noted Date Diagnosed Date Periodontal disease 07/10/2023 Social History Tobacco Use Types Packs/Day Years Used Date Smoking Tobacco: Former Cigarettes 0.3 0.5 Passive Smoke Exposure: Past Smokeless Tobacco: Former Tobacco Cessation:Counseling Given: No Alcohol Use Standard Drinks/Week Comments Never 0 (1 standard drink = 0.6 oz pur e alcohol) Sex and Gender Information Value Date Recorded Sex Assigned at Male 09/12/2022 10:16 AM EDT Legal Sex Male 10:16 AM EDT Gender Identity Choose not to disclose 10:16 AM EDT Sexual Orientation Choose not to disclose 2021 10:16 AM EDT Last Filed Vital Signs Vital Sign Reading Time Taken Comments Blood Pressure 138/80 07/10/2023 11:45 AM EDT Pulse - - Temperature - - Respiratory Rate - - Oxygen Saturation - - Inhaled Oxygen Concentration - - Weight - - Height - - Body Mass Index - - Plan of Treatment Health Maintenance Due Date Last Done Comments CT Colonography 1965 Colonoscopy 1965 Colorectal Cancer Screening 1965 Depression Screening 1965 FIT DNA/Cologuard 1963 FIT 1963 FOBT 1965 HIV Screening 1965 Lipid Panel 1965 SDOH Screening 1965 Sigmoidoscopy 1965 Alcohol/Substance Use Screening 1975 Hepatitis C Screening 1981 Dental Prophylaxis 06/02/2015 12/02/2014, 05/30/2014 Pneumococcal Vaccine: 50+ Years (2 of 2 - PPSV23) 09/25/2020 07/31/2020 Pneumococcal Vaccine: Pediatrics (0 to 5 Years) and At-Risk Patients (6 to 49) Years) (2 of 2 - PPSV23 or PCV20) 09/25/2020 07/31/2020 Dental Oral Exam 04/21/2021 10/20/2020, 12/2013, 04/14/2014 Dental X-Ray: Bitewings 10/21/2021 10/20/20 20, 12/02/2014, 04/14/2014, Additional history exists RSV Patients and Patients Aged 60 years or older (1 - Risk 60-74 years 1-dose series) 2023 Tobacco Screening 07/10/2024 07/10/2023 COVID-19 Vaccine ( season) 2024 09/15/2021, 02/19/2021, 01/22/2021, Additional history exists Influenza Vaccine (#1) 2024 , 10/26/2021, 09/15/2021, Additional history exists Dental X-Ray: Full Mouth 07/11/2026 023, 10/20/2020, 04/14/2014 DTaP/Tdap/Td Vaccines (3 - Td or Tdap) 05/23/2032 05/23/2022, 01/12/2011, 02/14/2001 Hepatitis A Vaccines Aged Out 10/14/2003, 01/31/20 03 No longer eligible based on patient's age to complete this topic Hepatitis B Vaccines Aged Out 01/27/2004, 01/23/2003, 12/25/2002 No longer eligible based on patient's age to complete this topic Zoster Vaccines Completed 07/25/2022, 05/23/2022 HIB Vaccines Aged Out No longer eligi ble based on patient's age to complete this topic HPV Vaccines Aged Out No longer eligi ble based on patient's age to complete this topic IPV Vaccines Aged Out No longer eligi ble based on patient's age to complete this topic Meningococcal Vaccine Aged Out No violeta kian eligible based on patient's age to complete this topic RSV under 20 months Aged Out No longe r eligible based on patient's age to complete this topic Rotavirus Vaccines Aged Out No longer eligible based on patient's age to complete this topic Procedures Procedure Name Priority Date/Time Associated Diagnosis Comments PANORAMIC RADIOGRAPHIC IMAGE Routine 07/10/2023 11:30 AM EDT DIAGNOSTIC - DIAGNOSTIC IMAGING - INTRAORAL - COMPREHENSIVE SERIES OF RADIOGRAPHIC IMAGES Routine 10/20/2020 12:00 AM EST PERIODIC ORAL EVALUATION - ESTABLISHED PATIENT Routine 10/20/2020 12:00 AM EST PROPHYLAXIS - ADULT Routine 12/02/2014 1 2:00 AM EST from Last 3 Months or Most Recently Relevant to Health Maintenance Insurance [facility] MEDICAID STAND [facility] [place] [id number] [place] [id number] [place] [id number]
[2024-12-20 09:15] VITALS: BP 99/64; PULSE 74; RESP 16; TEMP 36.7; O2SAT 100; BMI 25.8
[2024-12-20 09:16] LABS: Glucose, Whole Blood 162 mg/dL (60-115)
[2024-12-20] MEDS: Lactated Ringers 1,000 ML 100 ML IVCONT (09:28)
--- NOTE | 2024-12-20 09:45 | MHC.SHP ---
Pre-Procedural Eval Section A - 24 Hr Update-Section A only Date of Service: 12/20/24 Section B - Complete if H&P > 30 days Chief Complaint: De La Cruz's esophagus without dysplasia Details of Present Illness: see H&P no changes Relevant Family History (Specify if Yes): No Relevant Social History: None Present Medications: see Short Stay Collaborative assessment Medical History: No relevant PMH Allergies: Allergies Allergy/AdvReac Type Severity Reaction Status Date / Time No Known Allergies Allergy Verified 12/20/24 09:26 Review of Systems Sugical H&P ROS: Negative: Constitution, Cardiovascular, Respiratory, Neurological, Psychiatric, Hem-Onc, Allergic/Immunologic, Gastrointestinal, Genitourinary, Musculoskeletal, Integumentary, Endocrine and Eyes/Ears/Nose/Throat Exam Surgical H&P Exam: Normal: HEENT, Normal: Heart, Normal: Lungs, Normal: Extremities, Normal: Abdomen, Normal: Skin and Normal: Neurological Plan Diagnosis/Plan: Unchanged I have reviewed the history and physical and performed a pertinent physical examination on my patient. No changes have occurred unless specified. Time Spent With Patient Time: Total time managing care of this patient today ____ minutes.
[2024-12-20 10:29] VITALS: BP 90/58; PULSE 68; RESP 20; TEMP 36.1; O2SAT 95
--- NOTE | 2024-12-20 10:39 | P.BOP_ITS ---
Brief Operative Note Date of Service: 12/20/24 Pre-op diagnosis: barretts Post-op diagnosis: same Procedure: egd Surgeon: Demetris Cazares MD Anesthesia: MAC Was an Early Childhood Teacher Assistant used for this Procedure?: No Estimated blood loss (mL): 2 Pathology: other Condition: stable Disposition: PACU
[2024-12-20 10:54] VITALS: BP 103/66; PULSE 64; RESP 16; TEMP 36.1; O2SAT 95
--- NOTE | 2024-12-20 10:55 | OP_ITS ---
DATE OF SERVICE: 12/20/2024 SURGEON: Demetris Cazares MD INDICATIONS: De La Cruz esophagus. PREOPERATIVE DIAGNOSIS: POSTOPERATIVE DIAGNOSIS: PROCEDURE PERFORMED: Upper endoscopy with biopsy. ESTIMATED BLOOD LOSS: COMPLICATIONS: ANESTHESIA: Monitored anesthesia care. ASSISTANTS: SPECIMENS: DESCRIPTION OF PROCEDURE: A history and physical was performed. The risks and benefits of the procedure were explained to the patient and informed consent was obtained. The patient placed in the left lateral decubitus position. The Olympus video gastroscope was introduced into the esophagus, stomach, and duodenum. Examination was performed and the scope was removed. He tolerated the procedure well and was returned to recovery area in stable condition. 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 There were no raised lesions or ulcerated areas. Biopsies were obtained beginning at the EG junction extending approximately every 2 cm in all 4 quadrants. There was a small sliding hiatal hernia. Stomach: The stomach showed no evidence of masses or ulcers. There was mild gastritis. The antral biopsies were obtained. Duodenum: The bulb and 2nd portion were normal. IMPRESSION: De La Cruz esophagus. RECOMMENDATION: Follow up the biopsy results. MD DIMITRIOS Dudley/[place] / [id number]
== END 2024-12-20 10:55 | disposition home or self-care (01) ==
PROVIDERS: PCP Internal Medicine; Visit Provider Internal Medicine Gastroenterology
PROC: 0DJ08ZZ Inspection of Upper Intestinal Tract, Via Natural or Artificial Opening Endoscopic (ICD-10-PCS; CPT 43235; principal; 2024-12-20 10:00)
DX: K22.70 Barrett's esophagus without dysplasia (principal); K21.9 Gastro-esophageal reflux disease without esophagitis; K29.60 Other gastritis without bleeding; K44.9 Diaphragmatic hernia without obstruction or gangrene; B19.20 Unspecified viral hepatitis C without hepatic coma; E11.9 Type 2 diabetes mellitus without complications; E78.00 Pure hypercholesterolemia, unspecified; G47.00 Insomnia, unspecified; F32.A Depression, unspecified; Z79.84 Long term (current) use of oral hypoglycemic drugs; Z79.899 Other long term (current) drug therapy; Z98.890 Other specified postprocedural states; Z87.891 Personal history of nicotine dependence
CPT/HCPCS: 43239; 82947; 88305; 88313; 88342; J2003; J2704

== ENCOUNTER 2025-02-17 08:29 | Outpatient (REF) | payer OTHER, SELFPAY ==
--- OUTSIDE RECORDS SUMMARY | 2025-02-17 09:01 | XMS_ITS | Clinical Summary ---
Author Organization [employer] [facility] Address [address] [place] [address] [address] [place] [address] Care Team Providers Care Hydraulic Jack Mechanic Name Role Phone Unavailable Primary Care Provider [...] RADIOGRAPHIC IMAGE Routine 07/10/2023 11:30 AM EDT INTRAORAL - COMPLETE SERIES OF RADIOGRAPHIC IMAGES Routine 10/20/2020 12:00 AM EST PERIODIC ORAL EVALUATION - ESTABLISHED PATIENT Routine 10/20/2020 12:00 AM EST PROPHYLAXIS - ADULT Routine 12/02/2014 1 2:00 AM EST from Last 3 Months or Most Recently Relevant to Health Maintenance [facility] [address] [place] [id number] [place] [id number] [place] [id number] [place] [id number]
--- OUTSIDE RECORDS SUMMARY | 2025-02-17 09:02 | XMS_ITS ---
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) Active confirmed Encounters Encounter Location Date Provider Diagnosis [facility] Outpatient [address] [place], [place] [phone] 12/20/2024 Demetris Cazares Jr Choe''s esophagus without dysplasia K22.70 Assessments Encounter Date Diagnosis (ICD Code) Assessment Notes Treatment Notes Treatment Clinical Notes Section Notes 12/20/2024 Choe''s esophagus without dysplasia (ICD-10 - K22.70) Plan Of Treatment No Information Progress Notes * KLEVER POSADAOB:1965 (59 yo M)Acc No.[id number]:12/20/2024 EGD/MAC Patient:?BERNICE POSADAELIO Provider:?Demetris Cazares MD :1965???Age:59 Y???Sex:Male Cresencio e:12/20/2024 Address:[address] [place], [place] [phone] Pcp:Rachelle Yanez Subjective: * Chief Complaints: * ???1. Choe's. * Medical History:? Objective: * Vitals:? Assessment: * Assessment: 1.?Choe''s esophagus with out dysplasia - K22.70 (Primary)??? Plan: * Treatment: * Procedure Codes:?35081 UPPER GI ENDOSCOPY, BIOPSY * * The named appointment provid er may or may not be the originator of this progress note, and it is not deemed complete until electronically signed by the appointment provider. Sign off status: Pending * Provider:?Demetris Cazares MD Date:?0 12/20/2024 Generated for Steff villalba/Sukhwinder/Michaelsmitting on:?02/17/2025 09:01 AM EDT
--- OUTSIDE RECORDS SUMMARY | 2025-02-17 09:02 | XMS_ITS ---
Author Organization [facility] Address [address] [place] [address] Care Team Providers Care Hull Outfit Supervisor Name Role Phone Rachelle Yanez Primary Care Provider UnavailDemetris De Luna Jr Unavailable Allergies No Known Allergies REASON FOR VISIT Patient presents today for an office recall hx of barretts esophagus Medications Medication SIG (Take, Route, Fr equency, Duration) Notes Start Date End Date Status metFORMIN HCl 850 MG 1 tablet with meals Orally Twice a day Active traZODone HCl 50 MG 1 tablet at bedtime Orally Once a day Active Januvia 25 MG 1 tablet Orally Once a day Active Glimepiride 1 MG TAKE 1/2 TABLET BY M OUTH EVERY DAY Oral Once a day Active Omeprazole 20 MG 1 capsule Orally Once a day Active Sertraline HCl 50 MG 1 tablet Orally Once a day Active Simvastatin 10 MG 1 tablet in the even ing Orally Once a day Active Social History Tobacco Use: Social History Observation Description Date Details (start date - stop date) Former Smoker NA - NA Tobacco Use/Smoking Question Answer Notes Patient is a former smoker How long has it been since you last smoked? > 10 years Alcohol Screen Question Answer Notes Did you have a drink containing alcohol in the p ast year? No Points 0 Interpretation Negative Vital Signs Temperature 97.7 degrees Fahrenheit 11/18/19 25 Blood pressure systolic 000 mm Hg 11/18/19 25 Blood pressure diastolic 00 mm Hg 025 Height 64 in 11/18/2024 Weight 147 lbs 11/18/2024 BMI 25.23 kg/m2 11/18/2024 Procedures Procedure Date Ordered Date Performed Result Body Sit e UPPER GI ENDOSCOPY 11/18/2024 N/A Encounters Encounter Location Date Provider Diagnosis [facility] [address] [place] [address] 11/18/2024 Demetris Cazares Jr Barretts esophagus without dysplasia K22.70 Assessments Encounter Date Diagnosis (ICD Code) Assessment Notes Treatment Notes Treatment Clinical Notes Section Notes 11/18/2024 Barretts esophagus without dysplasia (ICD-10 - K22.70) Esophagectomy - discharge material was printed We discussed endoscopy today. We discussed risks and benefits of the procedure today. He understands these and agrees to proceed. He is advised to stop Januvia 3 days before the procedure, metformin and glimepiride the day of the procedure. Plan Of Treatment Treatment Notes Assessment Notes Barretts esophagus without dysplasia Eso phagectomy - discharge material was printed Pending Test Test Name Order Date UPPER GI ENDOSCOPY 11/18/2024 Next Appt Details Follow Up: 1 Year, Reason: Progress Notes * MAIKEL SALDIVARODOB:1965 (59 yo M)Acc No.[id number]:11/18/2024 Progress Notes Patient:?SRIKANTH SALDIVAR Provider:?Demetris Cazares MD :1965???Age:59 Y???Sex:Male Cresencio e:11/18/2024 Address:[address] [place], [place] [phone] Pcp:Rachelle Yanez Subjective: * Chief Complaints: * ???1. Patient presents today for an office recall hx of barretts esophagus. * HPI: ???New symptom(s):? Mr. Saldivar is seen today in followup of De La Cruz's esophagus and gastroesophageal reflux disease. He has no complaints of dysphagia, hematemesis, or melena. Weight and appetite have been stable. He continues on omeprazole 20 mg daily with good control of reflux symptoms. * Medical History:?Insomnia, D iabetes mellitus, hepatitis C, previously treated (? Alisson), with SVR, liver biopsy 05/20 chronic hepatitis grade 2/4 stage 1/4, Elevated cholesterol, Depression, De La Cruz's esophagus, EGD 01/28/22, stable De La Cruz's, no dysplasia, three-year followup, Colonoscopy 02/01, no polyps, ten-year followup. * Surgical History:?right arm surgery , liver biopsy . * Family History:?Father: dece ased.?Mother: .? no known hx of colon cancer. Unknown family history of liver cancer. * Social History:?Tobacco Use:?Tobacco Use/Smoking?Patient is a?former smoker,?How long has it been since you last smoked??> 10 years.?Drugs/Alcohol:?Alcohol Screen?Did you have a drink containing alcohol in the past year??No,?Points?0,?Interpretation?Negative.?Miscellaneous:?Marital status: single. Occupation: unemployed. * Medications:?Taking Sertrali ne HCl 50 MG Tablet 1 tablet Orally Once a day, Taking Simvastatin 10 MG Tablet 1 tablet in the evening Orally Once a day, Taking metFORMIN HCl 850 MG Tablet 1 tablet with meals Orally Twice a day, Taking traZODone HCl 50 MG Tablet 1 tablet at bedtime Orally Once a day, Taking Januvia 25 MG Tablet 1 tablet Orally Once a day, Taking Glimepiride 1 MG Tablet TAKE 1/2 TABLET BY MOUTH EVERY DAY Oral Once a day, Taking Omeprazole 20 MG Capsule Delayed Release 1 capsule Orally Once a day, Medication List reviewed and reconciled with the patient * Allergies:?N.K.D.A. Objective: * Vitals:?Wt: 147 lbs, Ht: 64 in, BMI:25.23 Index, BP: 000/00 mm Hg, Temp: 97.7. * Examination: ???General Examination: ???On examination today, he looks well. Skin is anicteric. Lungs clear. Heart shows a regular rate and rhythm. Abdomen is soft without focal mass or tenderness. Assessment: * Assessment: 1.?Barretts esophagus withou t dysplasia - K22.70 (Primary)? We discussed endoscopy today . We discussed risks and benefits of the procedure today. He understands these and agrees to proceed. He is advised to stop Januvia 3 days before the procedure, metformin and glimepiride the day of the procedure. Plan: * Treatment: Notes: Esophagectomy - discharge material was printed?? * Procedure Codes:?3017F COLOR ECTAL CA SCREEN DOC REV, G9744 PATIENT NOT ELIG D/T ACTIVE DX HTN * Preventive Medicine:? ??Counseling:?Care goal follow-up plan:?Above Normal BMI Follow-up?Giving encouragement to exercise,?BMI management provided?Yes.? * Follow Up:?1 Year * * Sign off status: Completed true * Provider:?Demetris Cazares MD Date:?0 11/18/2024 Generated for Printi orly/Sukhwinder/eTransmitting on:?02/17/2025 09:01 AM EDT History and Physical Notes * HPI (History of Present Illness) Category Sub-Category Detail Notes Category Not es New symptom(s) Mr. Saldivar is seen today in followup of De La Cruz's esophagus and gastroesophageal reflux disease. He has no complaints of dysphagia, hematemesis, or melena. Weight and appetite have been stable. He continues on omeprazole 20 mg daily with good control of reflux symptoms. Examination Category Sub-Category Detail Notes Category Not es General Examination On exami nation today, he looks well. Skin is anicteric. Lungs clear. Heart shows a regular rate and rhythm. Abdomen is soft without focal mass or tenderness.
--- OUTSIDE RECORDS SUMMARY | 2025-02-17 09:02 | XMS_ITS | Patient Health Record ---
Author Organization [facility] Address [address] [place] [address] Care Team Providers Care Bird Cage Assembler Name Role Phone Cecenicole Rachelle Primary Care Provider Unavailab Demetris Massey Jr Unavailable Allergies No Known Allergies Results Component Value Reference Range Notes Glucose, Whole Blood Reviewed date:12/20/2024 03:43:30 PM Interpretation: Performing Lab:[facility], [address] [place] [phone] Notes/Report: Glucose, Whole Blood 162 60-115 mg/dL METER # : [id number] Pathology Reviewed date:01/02/2025 09:37:46 AM Interpretation: Performing Lab:[facility], [address] [place] [phone] Notes/Report: ------ Name: Srikanth Saldivar Age/Sex: 59/M : 1965 Unit#: [id number] Attend Dr: Demetris Cazares MD Re12/20/24 Status : [facility] Location: [facility] Disch: ------ SPEC : [id number] RECD: 12/20/24 STATUS: EDDIE JACOB NUM: [id number] SHWETHA: 12/20/24-[address] [facility] [address]: Demetris Cazares MD ENTERED: 12/20/2410 41 SP TYPE: Surgical OTHR DR: Rachelle Yanez MD ORDERED: HE Stain/18 , Gross Micro L4/6, IHC, Special st. 2, H. pylori, AB/PAS Addendum Addendum 1 Entered: 12/26/24 Immunostain for H. p ylori on A is negative. Additional level with AB/PAS on B is negative for intestinal metap lasia. Controls stain appropriately. Addendum Signed (signature on file) Delfina Magali 12/26/24912 ------ Diagnosis A. Gastric antrum, b iopsy: Gastric antral mucosa with reactive changes and minimal chronic inactive gastritis; negative for intestinal metaplasia and dysplasia. B. Esophagogastric junction, biopsy: Columnar mucosa with minimal chronic inflammation; no intestinal metapl yenifer seen on initial levels; negative for dysplasia. C. Esophagus, at 28 cm, biopsy: Columnar mucosa with minimal chronic inflammation and focal intestinal metaplasia consistent with De La Cruz's mucosa; negative for dysplasia. D. Esophagus, at 26 cm, biopsy: Columnar mucosa with minimal chronic inflammation and intestinal metaplasi a consistent with De La Cruz's mucosa; negative for dysplasia. E. Esophagus, at 24 cm, biopsy: Columnar mucosa with minimal chronic inflammation and intestinal metaplasi a consistent with De La Cruz's mucosa; negative for dysplasia. F. Esophagus, at 22 cm, biopsy: Columnar mucosa with minimal chronic inflammation and intestinal metaplasi a consistent with De La Cruz's mucosa; negative for dysplasia. Comment: (A): Immunostain for H. pylori pending; addendum to follow. (B): Additional judith l with AB/PAS stain pending; addendum to follow. Clinical History De La Cruz's esophagus without dysplasia CONTINUED ON NEXT PAGE ------ Name: Srikanth Saldivar Age/Sex: 59/M : 1965 Unit#: [id number] Attend Dr: Demetris Cazares MD Re12/20/24 Status : [facility] Location: [facility] Disch: ------ SPEC : [id number] RECD: 12/20/24-1037 STATUS: EDDIE JACOB NUM: [id number] SHWETHA: 12/20/24-[address] [facility] [address]: Demetris Cazares MD ENTERED: 12/20/24-10 41 SP TYPE: Surgical OTHR DR: Rachelle Yanez MD ORDERED: HE Stain/18 , Gross Micro L4/6, IHC, Special st. 2, H. pylori, AB/PAS Microscopic Description Microscopic sections reviewed. Material Received A. Antral bx's B. Eg junction C. Esophagus at 28cm D. Esophagus at 26 cm E. Esophagus at 24 cm F. Esophagus at 22 cm Gross Description Received in 6 parts. A. Received in forma kristina labeled ?antral biopsies? are 2 fragments of pink-nicholson soft tissue measuring 0.4 and 0. 4 cm in greatest dimension which are wrapped in lens paper and entirely submitted for micros copic examination, 2 pieces in cassette A. B. Received in forma kristina labeled ?EG junction? are 4 fragments of pink white soft tissue, each measuring 0.3 c m in greatest dimension which are wrapped in lens paper and entirely submitted for micros copic examination, 4 pieces in cassette B. C. Received in forma kristina labeled ?esophagus at 28 cm? are 4 fragments of pink white soft tissue measuring 0.2 -0.3 cm in greatest dimension which are wrapped in lens paper and entirely submitted f or microscopic examination, 4 pieces in cassette C. D. Received in forma kristina labeled ?esophagus at 26 cm? are 4 fragments of pink white soft tissue measuring 0.2 -0.3 cm in greatest dimension which are wrapped in lens paper and entirely submitted f or microscopic examination, 4 pieces in cassette D. E. Received in forma kristina labeled ?esophagus at 24 cm? are 4 fragments of red-pink soft tissue measuring 0.2-0.3 cm in greatest dimension which are wrapped in lens paper and entirely submitted for micros copic examination, 4 pieces in cassette E. F. Received in forma kristina labeled ?esophagus at 22 cm? are 3 fragments of red-pink soft tissue measuring 0.2-0.3 cm in greatest dimension which are wrapped in lens paper and entirely submitted for micros copic examination, 3 pieces in cassette F. [facility] Special studies orde red and performed: Immunostain for H. pylori on A1; AB/PAS stains on B1. CONTINUED ON NEXT PAGE ------ Name: Srikanth Saldivar Age/Sex: 59/M : 1965 Unit#: [id number] Attend Dr: Demetris Cazares MD Re12/20/24 Status : [facility] Location: [facility] Disch: ------ SPEC : [id number] RECD: 12/20/24 STATUS: EDDIE JACOB NUM: [id number] SHWETHA: 12/20/[address]: Demetris Cazares MD ENTERED: 12/20/24 41 SP TYPE: Surgical OTHR DR: Rachelle Yanez MD ORDERED: HE Stain/18 , Gross Micro L4/6, IHC, Special st. 2, H. pylori, AB/PAS Copies To: Rachelle Yanez MD [facility] [address] [place] [address] Demetris Cazares MD [facility] [address] [place] [address] ------ Signed (signature on file) Delfina De Los Santos 12/23/24 1406 ------ END OF REPORT Reason For Referral No Information Medications Medication SIG (Take, Route, Fr equency, Duration) Notes Start Date End Date Status Sertraline HCl 50 MG 1 tablet Orally Once a day Active Simvastatin 10 MG 1 tablet in the even ing Orally Once a day Active metFORMIN HCl 850 MG 1 tablet with meals Orally Twice a day Active traZODone HCl 50 MG 1 tablet at bedtime Orally Once a day Active Januvia 25 MG 1 tablet Orally Once a day Active Glimepiride 1 MG TAKE 1/2 TABLET BY M OUTH EVERY DAY Oral Once a day Active Omeprazole 20 MG 1 capsule Orally Once a day Active Immunizations Vaccine Route Administration Date Status Comme nts Influenza Unknown 08/07/2019 Administered Influenza Unknown 07/14/2020 Administered Influenza Unknown 10/26/2021 Administered Influenza Unknown 08/30/2022 Administered Influenza Unknown 09/03/2024 Administered Social History Tobacco Use: Social History Observation [...] ast year? No Points 0 Interpretation Negative Problems Problem Type SNOMED Code ICD Code Onset Dates Problem Status W/U Status Risk Notes Problem 079079631 Colon cancer screening (Z12.11) Active confirmed Problem 085784844 Bloating (R14.0) Active confirmed Problem 116028770 Barretts esophagus without dysplasia (K22.70) Active confirmed Problem De La Cruz esophagus (225740983) De La Cruz esophagus (K22.70) Active confirmed Problem De La Cruz's esophagus (352831750) De La Crzu''s esophagus without dysplasia (K22.70) Active confirmed Vital Signs Temperature 97.7 degrees Fahrenheit 11/18/2024 Blood pressure diastolic 00 mm Hg 11/18/2024 Height 64 in 11/18/2024 Blood pressure systolic 000 mm Hg 11/18/2024 Weight 147 lbs 11/18/2024 BMI 25.23 kg/m2 11/18/2024 Procedures Procedure Date Ordered Date Performed Result Body Sit e UPPER GI ENDOSCOPY 11/18/2024 N/A Encounters Encounter Location Date Provider Diagnosis [facility] Outpatient [address] [place] [id number] 12/20/2024 Demetris Cazares Jr De La Cruz''s esophagus without dysplasia K22.70 [facility] [address] [place] [address] 11/18/2024 Demetris Cazares Jr Barretts esophagus without dysplasia K22.70 [facility] [address] [place] [address] 01/02/2025 Demetris Cazares Jr Assessments Encounter Date Diagnosis (ICD Code) Assessment Notes Treatment Notes Treatment Clinical Notes Section Notes 12/20/2024 De La Cruz''s esophagus without dysplasia (ICD-10 - K22.70) 11/18/2024 Barretts esophagus without dysplasia (ICD-10 - K22.70) Esophagectomy - discharge material was printed We discussed endoscopy today. We discussed risks and benefits of the procedure today. He understands these and agrees to proceed. He is advised to stop Januvia 3 days before the procedure, metformin and glimepiride the day of the procedure. Plan Of Treatment Pending Test Test Name Order Date UPPER GI ENDOSCOPY 11/18/2024 Future Test Test Name Order Date COLONOSCOPY 06/14/2017 UPPER GI ENDOSCOPY 04/19/2018 UPPER GI ENDOSCOPY 12/22/2021 COLONOSCOPY 12/22/2021 Insurance Providers Payer Name Payer Address Payer Phone Subscriber Number Group Number Insured Name Patient Relationship to Insured Coverage Start Date Coverage End Date [facility] [employer] [facility] [address] [address] [place], [place] [id number] SRIKANTH SALDIVAR Self - patient is the insured MEDICAID OF [facility] [address] [place] [address] [phone] [id number] SRIKANTH SALDIVAR Self - patient is the insured Medical (General) History Medical History History ICD Code insomnia diabetes mellitus hepatitis C, previously rocael alvaro (? Harvcrystal), with SVR, liver biopsy 05/20 chronic hepatitis grade 2/4 stage 1/4 elevated cholesterol depression De La Cruz's esophagus, EGD 01/11 07/04, stable De La Cruz's, no dysplasia, three-year followup Colonoscopy 02/01, no polyps, ten-year fo llowup Surgical History Surgery Date(Month/Year) right arm surgery liver biopsy
--- OUTSIDE RECORDS SUMMARY | 2025-02-17 09:02 | XMS_ITS ---
Author Organization [facility] Address [address] [place] [address] Care Team Providers Care Ax Survey Worker Name Role Phone Rachelle Yanez Primary Care Provider Unavailab Demetris Massey Jr REASON FOR VISIT pathology Encounters Encounter Location Date Provider Diagnosis [facility] [address] [place] [address] 01/02/2025 Demetris Cazares Jr Plan Of Treatment No Information Progress Notes * KLEVER POSADAOB:1965 (59 yo M)Acc No.[id number]:01/02/2025 Patient:?SRIKANTH POSADA :1965???Age:59 Y???Sex:Male Address:[address] [place] [id number] * true * Date:? Generated for Steff villalba/Sukhwinder/eTransmitting on:?02/17/2025 09:01 AM EDT
[2025-02-17 09:18] LABS: Estimated Average Glucose 160 mg/dL; Hemoglobin A1C 209.0066 umol/L; Hemoglobin A1c % 7.2 % (<6.0); Total Hemoglobin (HGBA1C) 3767.4096 umol/L
[2025-02-17 09:45] LABS: Erythrocyte Sedimentation Rate 2 MM/HR (0-15)
[2025-02-17 10:14] LABS: Alanine Aminotransferase 32 U/L (0-40); Albumin Level 4.3 g/dL (3.5-5.0); Alkaline Phosphatase 70 U/L (39-117); Anion Gap 10 (12-20); Aspartate Amino Transferase 31 U/L (5-37); Bilirubin Total 1.3 mg/dL (0.0-1.0); Blood Urea Nitrogen 12 mg/dL (9-16); Calcium 9.2 mg/dL (8.4-10.2); Carbon Dioxide 27 mmol/L (22-29); Chloride 106 mmol/L (96-108); Cholesterol 90 mg/dL (<200); Estimated Glomerular Filt Rate > 60; Glucose Random 170 mg/dL (60-115); HDL Cholesterol 45 mg/dL (>40); LDL Cholesterol Calculated 35 mg/dL (<100); Potassium 3.8 mmol/L (3.3-5.1); Sodium 139 mmol/L (135-145); Total Protein 6.7 g/dL (6.5-8.0); Triglycerides 51 mg/dL (<150)
[2025-02-17 11:03] LABS: Rheumatoid Factor < 13.0 IU/mL (<15.0)
[2025-02-18 15:24] LABS: Cyclic Citrullinated Peptide <16 UNITS
[2025-02-20 11:38] LABS: ANA Pattern 2 Nuclear, Homogeneous; ANA Titer 2 1:40 titer; Anti Nuclear Antibody Pattern Nuclear, Speckled; Anti Nuclear Antibody Screen POSITIVE (NEGATIVE)
== END 2025-02-17 08:30 | disposition home or self-care (01) ==
LOC: HO.LAB 08:29
PROVIDERS: PCP Internal Medicine; Visit Provider Internal Medicine
DX: E11.9 Type 2 diabetes mellitus without complications (principal); E78.00 Pure hypercholesterolemia, unspecified; M13.0 Polyarthritis, unspecified; M54.50 Low back pain, unspecified; M79.10 Myalgia, unspecified site
CPT/HCPCS: 36415; 80053; 80061; 83036; 85652; 86038; 86039; 86200; 86431

== ENCOUNTER 2025-05-19 08:31 | Outpatient (REF) | payer OTHER, SELFPAY ==
--- OUTSIDE RECORDS SUMMARY | 2024-12-20 06:00 | XMS_ITS ---
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) Active confirmed Encounters Encounter Location Date Provider Diagnosis [facility] [place] Outpatient [address] [place] [phone] 12/20/2024 Demetris Cazares Jr Choe''s esophagus without dysplasia K22.70 Assessments Encounter Date Diagnosis (ICD Code) Assessment Notes Treatment Notes Treatment Clinical Notes Section Notes 12/20/2024 Choe''s esophagus without dysplasia (ICD-10 - K22.70) Plan Of Treatment No Information Progress Notes * KLEVER POSADAOB:1965 (59 yo M)Acc No.[id number]:12/20/2024 EGD/MAC Patient: SRIKANTH MOON Provider: Nadia Cazares MD :1965 A ge:59 Y S ex:Male Date:12/20/2024 Address:[address] [place], [place] [phone] Pcp:Rachelle Yanez Subjective: * Chief Complaints: * 1 . Choe's. * Medical History: Objective: * Vitals: Assessment: * Assessment: 1. B arrett''s esophagus without dysplasia - K22.70 (Primary) Plan: * Treatment: * Procedure Codes: 4 3239 UPPER GI ENDOSCOPY, BIOPSY * * The named appointment provid er may or may not be the originator of this progress note, and it is not deemed complete until electronically signed by the appointment provider. Sign off status: Pending * Provider: Nadia Cazares MD Date: 12/20/2024 Generated for Steff villalba/Sukhwinder/Sarithaitting on: 0 05/19/2025 08:42 AM EDT
--- OUTSIDE RECORDS SUMMARY | 2025-05-19 08:42 | XMS_ITS | Clinical Summary ---
Author Organization [facility] Address [address] [facility] 7t [place] [address] Care Team Providers Care Health And Safety Instructor Name Role Phone Unavailable Primary Care Provider [...] Date Last Done Comments CT Colonography 1965 Depression Screening 1965 FIT DNA/Cologuard 1965 FIT 1965 FOBT 1965 HIV Screening 1965 Lipid Panel 1965 SDOH Screening 1965 Sigmoidoscopy 1965 Disability Screening 1965 Alcohol/Substance Use Screening 1975 Hepatitis C Screening 1981 Dental Prophylaxis 06/02/2015 12/02/2014, 05/30/2014 Pneumococcal Vaccine: 50+ Years (2 of 2 - PPSV23) 09/25/2020 07/31/2020 Dental Oral Exam 04/21/2021 10/20/2020, 12/2013, 04/14/2014 Dental X-Ray: Bitewings 10/21/2021 10/20/20 20, 12/02/2014, 04/14/2014, Additional history exists RSV Patients and Patients Aged 60 years or older (1 - Risk 60-74 years 1-dose series) 2023 Tobacco Screening 07/10/2024 07/10/2023 COVID-19 Vaccine ( season) 2024 09/15/2021, 02/19/2021, 01/22/2021, Additional history exists Influenza Vaccine (#1) 2025 , 10/26/2021, 09/15/2021, Additional history exists Dental X-Ray: Full Mouth 07/11/2026 023, 10/20/2020, 04/14/2014 Colonoscopy 01/29/2032 01/28/2022 Colorectal Cancer Screening 01/29/2032 DTaP/Tdap/Td Vaccines (3 - Td or Tdap) [...] patient's age to complete this topic Meningococcal B Vaccine Aged Out No l onger eligible based on patient's age to complete [...] Most Recently Relevant to Health Maintenance Insurance [facility] MEDICAID [address] [place] [id number] [place] [id number]
[2025-05-19 09:46] LABS: Hemoglobin A1C 222.7942 umol/L; Total Hemoglobin (HGBA1C) 3901.3365 umol/L
[2025-05-19 10:05] LABS: Alanine Aminotransferase 18 U/L (0-40); Albumin Level 4.5 g/dL (3.5-5.0); Alkaline Phosphatase 79 U/L (39-117); Anion Gap 12 (12-20); Aspartate Amino Transferase 26 U/L (5-37); Blood Urea Nitrogen 16 mg/dL (9-16); Calcium 9.3 mg/dL (8.4-10.2); Carbon Dioxide 26 mmol/L (22-29); Chloride 105 mmol/L (96-108); Estimated Glomerular Filt Rate > 60; Potassium 3.8 mmol/L (3.3-5.1); Sodium 139 mmol/L (135-145); Total Protein 7.0 g/dL (6.5-8.0)
[2025-05-19 12:16] LABS: Microalbum/Creatinine Ratio Ur 7.8 ug/mg cr (<30)
== END 2025-05-19 08:32 | disposition home or self-care (01) ==
LOC: HO.LAB 08:31
PROVIDERS: PCP Internal Medicine; Visit Provider Internal Medicine
DX: E11.9 Type 2 diabetes mellitus without complications (principal); E78.00 Pure hypercholesterolemia, unspecified; M25.519 Pain in unspecified shoulder; M79.10 Myalgia, unspecified site; N40.0 Benign prostatic hyperplasia without lower urinary tract symptoms
CPT/HCPCS: 36415; 80053; 82043; 82550; 82570; 83036; 84153

== ENCOUNTER 2025-08-20 08:29 | Outpatient (REF) | payer OTHER, SELFPAY ==
[2025-08-20 09:36] LABS: Alanine Aminotransferase 20 U/L (0-40); Albumin Level 4.7 g/dL (3.5-5.0); Alkaline Phosphatase 83 U/L (39-117); Anion Gap 10 (12-20); Aspartate Amino Transferase 22 U/L (5-37); Blood Urea Nitrogen 16 mg/dL (9-16); Calcium 9.4 mg/dL (8.4-10.2); Carbon Dioxide 29 mmol/L (22-29); Chloride 104 mmol/L (96-108); Estimated Glomerular Filt Rate > 60; Potassium 4.3 mmol/L (3.3-5.1); Sodium 139 mmol/L (135-145); Total Protein 7.0 g/dL (6.5-8.0)
== END 2025-08-20 08:30 | disposition home or self-care (01) ==
LOC: HO.LAB 08:29
PROVIDERS: PCP Internal Medicine; Visit Provider Internal Medicine
DX: Z00.00 Encounter for general adult medical examination without abnormal findings (principal); E78.00 Pure hypercholesterolemia, unspecified; E11.9 Type 2 diabetes mellitus without complications; K22.70 Barrett's esophagus without dysplasia; Z86.0101 Personal history of adenomatous and serrated colon polyps
CPT/HCPCS: 36415; 80053; 83036

== ENCOUNTER 2025-11-10 08:37 | Outpatient (REF) | payer OTHER, SELFPAY ==
--- OUTSIDE RECORDS SUMMARY | 2024-12-20 05:00 | XMS_ITS ---
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) Active confirmed Encounters Encounter Location Date Provider Diagnosis [facility] Outpatient [address] [place] [phone] 12/20/2024 Demetris Cazares Jr Choe''s esophagus without dysplasia K22.70 Assessments Encounter Date Diagnosis (ICD Code) Assessment Notes Treatment Notes Treatment Clinical Notes Section Notes 12/20/2024 Choe''s esophagus without dysplasia (ICD-10 - K22.70) Plan Of Treatment No Information Progress Notes * KLEVER POSADAOB:1965 (60 yo M)Acc No.[id number]:12/20/2024 EGD/MAC Patient: SRIKANTH MOON Provider: Nadia Cazares MD :1965 A ge:59 Y S ex:Male Date:12/20/2024 Address:[address] [place], [place] [phone] Pcp:Rachelle Yanez Subjective: * Chief Complaints: * B arrett's Assessment: * Assessment: 1. B arrett''s esophagus without dysplasia - K22.70 (Primary) Plan: * Procedure Codes: 4 3239 UPPER GI ENDOSCOPY, BIOPSY Billing Information: * Procedure Codes: 02248 UPPER GI ENDOSCOPY, BIOPSY. * The named appointment provid er may or may not be the originator of this progress note, and it is not deemed complete until electronically signed by the appointment provider. Sign off status: Pending * Provider: Nadia Cazares MD Date: 0 12/20/2024 Generated for Steff villalba/Sukhwinder/Sarithaitting on: 08:38 AM EST
--- OUTSIDE RECORDS SUMMARY | 2025-11-10 08:39 | XMS_ITS | Clinical Summary ---
Author Organization [facility] [facility] Address [address] [facility] 7t [place] [address] Care Team Providers Care Turnstile Attendant Name Role Phone Unavailable Primary Care Provider [...] Screening 1981 Dental Prophylaxis 06/02/2015 12/02/2014, 05/30/2014 Dental Oral Exam 04/21/2021 10/20/2020, 12/2013, 04/14/2014 Dental X-Ray: Bitewings 10/21/2021 12/08/20 20, 12/02/2014, 04/14/2014, Additional history exists Tobacco Screening 07/10/2024 07/10/2023 Influenza Vaccine (#1) 2025 , 08/24/2023, 08/30/2022, Additional history exists COVID-19 Vaccine ( season) 2025 05/30/2025, 09/15/2021, 02/19/2021, Additional history exists Dental X-Ray: Full Mouth 07/11/2026 023, 10/20/2020, 04/14/2014 Colonoscopy 01/29/2032 01/28/2022 Colorectal Cancer Screening 01/29/2032 DTaP/Tdap/Td Vaccines (4 - Td or Tdap) 08/30/2034 08/30/2024, 05/23/2022, 01/12/2011, Additional history exists Hepatitis A Vaccines Aged Out 10/14/2003, 01/31/20 03 No longer eligible based on patient's age to complete this topic Hepatitis B Vaccines Aged Out 01/27/2004, 01/23/2003, 12/25/2002 No longer eligible based on patient's age to complete this topic Zoster Vaccines Completed 07/25/2022, 05/23/2022 RSV Patients and Patients Aged 60 years or older Completed 08/30/2024 Pneumococcal Vaccine: 50+ Years Completed 05/30/2025, 07/31/2020 HIB Vaccines Aged Out No longer eligi [...] Most Recently Relevant to Health Maintenance Insurance [facility] MEDICAID [address] [place] [address] [id number] [place] [id number] [place] [phone]
--- OUTSIDE RECORDS SUMMARY | 2025-11-10 08:39 | XMS_ITS | Patient Health Record ---
Author Organization [facility] Address [address] [place] [address] Care Team Providers Care Concert Pianist Name Role Phone Cecenicole Rachelle Primary Care Provider Demetris Bowling Jr [phone] Allergies No Known Allergies Results Component Value Reference Range Flag Notes Pathology Reviewed date:01/02/2025 09:37:46 AM Interpretation: Performing Lab:[facility], [address] [place] [phone] Notes/Report: Glucose, Whole Blood Reviewed date:12/20/2024 03:43:30 PM Interpretation: Performing Lab:[facility], [address] [place] [phone] Notes/Report: Glucose, Whole Blood 162 60-115 mg/dL H LA TER #: [id number] Reason For Referral No Information Medications Medication SIG (Take, Route, Frequency, Duration) Notes Start Date End Date Status Sertraline HCl 50 MG Tablet 1 tablet Ora lly Once a day Active Simvastatin 10 MG Tablet 1 tablet in the evening Orally Once a day Active metFORMIN HCl 850 MG Tablet 1 tablet wit h meals Orally Twice a day Active traZODone HCl 50 MG Tablet 1 tablet at b edtime Orally Once a day Active Januvia 25 MG Tablet 1 tablet Orally Onc e a day Active Glimepiride 1 MG Tablet TAKE 1/2 TABLET BY MOUTH EVERY DAY Oral Once a day Active Omeprazole 20 MG Capsule Delayed Release 1 capsule Orally Once a day Active Immunizations Vaccine Route Administration Date Status Comme nts Influenza Unknown 08/07/2019 Administered Influenza Unknown 07/14/2020 Administered Influenza Unknown 10/26/2021 Administered Influenza Unknown 08/30/2022 Administered Influenza Unknown 09/03/2024 Administered Social History Tobacco Use: Social History Observation Description Date Details (start date - stop date) Former Smoker NA - NA Social History Drugs/Alcohol: Social Info Question Answer Notes Alcohol Screen Did you have a drink containing alcohol in the past year? No Points 0 Interpretation Negative Tobacco Use: Social Info Question Answer Notes Tobacco Use/Smoking Patient is a former smoker How long has it been since you last smoked? > 10 years Additional Details Category Social Info Options Details Miscellaneous: Marital status: single Occupation: unemployed Problems Problem Type SNOMED Code ICD Code Onset Dates Problem Status W/U Status Risk Notes Problem Colon cancer screening (217257195) Colon cancer screening (Z12.11) Active confirmed Problem Flatulence, eructation and gas pain (817300398) Bloating (R14.0) Active confirmed Problem De La Cruz's esophagus (481292737) Barretts esophagus without dysplasia (K22.70) Active confirmed Problem De La Cruz esophagus (664718375) De La Cruz esophagus (K22.70) Active confirmed Problem De La Cruz's esophagus (894169910) De La Cruz''s esophagus without dysplasia (K22.70) Active confirmed Vital Signs Temperature 97.7 degrees Fahrenheit 11/18/2024 Blood pressure diastolic 00 mm Hg 11/18/2024 Height 64 in 11/18/2024 Blood pressure systolic 000 mm Hg 11/18/2024 Weight 147 lbs 11/18/2024 BMI 25.23 kg/m2 11/18/2024 Procedures Procedure Date Ordered Date Performed Result Body Sit e UPPER GI ENDOSCOPY 11/18/2024 N/A Encounters Encounter Location Date Provider Diagnosis [facility] Outpatient [address] [place] [id number] 12/20/2024 Demetris Cazares Jr De La Cruz''s esophagus without dysplasia K22.70 [facility] [address] [place] [phone] 11/18/2024 Demetris Cazares Jr Barretts esophagus without dysplasia K22.70 [facility] [address] [place] [phone] 01/02/2025 Demetris Cazares Jr Assessments Encounter Date [...] Insured Coverage Start Date Coverage End Date [facility] [employer] [facility] [address] [address] [place], [place] [id number] SRIKANTH POSADA Self - patient is the insured MEDICAID [facility] [address] [place] [address] [id number] SRIKANTH POSADA Self - patient is the insured Medical (General) History Medical History History ICD Code insomnia diabetes mellitus hepatitis C, previously rocael alvaro (? Harvoni), with SVR, liver biopsy 05/20 chronic hepatitis grade 2/4 stage 1/4 elevated cholesterol depression De La Cruz's esophagus, EGD 01/11 07/04, stable De La Cruz's, no dysplasia, three-year followup Colonoscopy 02/01, no polyps, ten-year fo llowup Surgical History Surgery Date(Month/Year) right arm surgery liver biopsy
[2025-11-10 10:01] LABS: Alanine Aminotransferase 16 U/L (0-40); Albumin Level 4.8 g/dL (3.5-5.0); Alkaline Phosphatase 87 U/L (39-117); Anion Gap 9 (12-20); Aspartate Amino Transferase 25 U/L (5-37); Blood Urea Nitrogen 14 mg/dL (9-16); Calcium 9.4 mg/dL (8.4-10.2); Carbon Dioxide 30 mmol/L (22-29); Chloride 104 mmol/L (96-108); Estimated Glomerular Filt Rate > 60; Potassium 4.0 mmol/L (3.3-5.1); Sodium 139 mmol/L (135-145); Total Protein 7.5 g/dL (6.5-8.0)
== END 2025-11-10 08:38 ==
LOC: HO.LAB 08:37
PROVIDERS: PCP Internal Medicine; Visit Provider Internal Medicine
DX: E11.65 Type 2 diabetes mellitus with hyperglycemia (principal); E78.00 Pure hypercholesterolemia, unspecified; I10 Essential (primary) hypertension; Z68.26 Body mass index [BMI] 26.0-26.9, adult
CPT/HCPCS: 36415; 80053; 83036